=== PATIENT | female | born 1940 | race Asian ===

== ENCOUNTER 2020-06-11 14:57 | Outpatient (CLI) | payer MEDICARE, OTHER, SELFPAY ==
--- NOTE | ~2020-06-11 | DEXA_ITS ---
Bone Density Report Name: Angel Mitchell Age: 79 Sex: Female Ethnicity: Date of : 1940 Indication: postmenopausal; height loss; prior fracture; Referring Provider: RosendoIrene Study: Bone densitometry was performed. Exam Date: June 11, 2020 Accession number: [id number] Bone Density: Region BMD T-score Z-score Classification AP Spine (L1-L4) 1.047 0.0 2.6 Normal Femoral Neck (Left) 0.750 -0.9 1.3 Normal Total Hip (Left) 0.917 -0.2 1.8 Normal Total Hip Bilateral Avg 0.883 -0.5 1.5 Normal Femoral Neck (Right) 0.700 -1.3 0.9 Osteopenia Total Hip (Right) 0.848 -0.8 1.2 Normal World Health Organization criteria for BMD impression classify patients as: Normal (T-score at or above -1.0), Osteopenia (T-score between -1.0 and -2.5), or Osteoporosis (T-score at or below -2.5). 10-year Fracture Risk(1): Major Osteoporotic Fracture 11% Hip Fracture 2.0% Reported Risk Factors: [place] (), Neck BMD=0.700, BMI=29.2, previous fracture (1) FRAX(R) Version 3.08. Fracture probability calculated for an untreated patient. Fracture probability may be lower if the patient has received treatment. Previous Exams: Region Exam Age BMD T-score BMD Change BMD Change Date g/cm2 vs Baseline vs Previous AP Spine(L1-L4) 06/11/2020 79 1.047 0.0 0.097(10.2%)# 0.017(1.6%)# 09/21/2013 72 1.030 -0.2 0.080(8.4%)# -0.072(-6.5%)* 06/30/2012 71 1.102 0.5 0.152(16.0%)# 0.014(1.3%)# 03/03/2010 69 1.088 0.4 0.138(14.5%)* -0.009(-0.8%) 03/02/2008 67 1.096 0.4 0.146(15.4%)* 0.146(15.4%)* 02/11/2004 63 0.950 -0.9 Total Hip(Left) 06/11/2020 79 0.917 -0.2 0.069(8.2%)# 0.061(7.2%)* 09/24/2015 74 0.856 -0.7 0.008(1.0%)# -0.011(-1.3%)# 09/21/2013 72 0.867 -0.6 0.019(2.2%)# -0.004(-0.5%) 06/30/2012 71 0.871 -0.6 0.023(2.8%)# -0.051(-5.5%)# 03/03/2010 69 0.922 -0.2 0.074(8.7%)* 0.046(5.2%)* 03/02/2008 67 0.876 -0.5 0.028(3.3%)* 0.028(3.3%)* 02/11/2004 63 0.848 -0.8 Total Hip(Right) 06/11/2020 79 0.848 -0.8 0.045(5.6%)# 0.023(2.8%) 09/24/2015 74 0.825 -1.0 0.022(2.7%)# 0.002(0.3%)# 09/21/2013 72 0.823 -1.0 0.019(2.4%)# -0.005(-0.6%) 06/30/2012 71 0.827 -0.9 0.024(3.0%)# -0.005(-0.6%)# 03/03/2010 69 0.833 -0.9 0.030(3.7%)* 0.001(0.1%) 03/02/2008 67 0.832 -0.9 0.029(3.6%)* 0.029(3.6%)* 02/11/2004 63 0.803 -1.1 *Denotes significance at 95% confidence level, LSC for AP Spine = 0.022 g/cm2, LSC for Total Hip
== END 2020-06-11 14:58 | disposition home or self-care (01) ==
PROVIDERS: PCP Internal Medicine; Visit Provider Internal Medicine Endocrinology, Diabetes & Metabolism
DX: M85.851 Other specified disorders of bone density and structure, right thigh (principal)
CPT/HCPCS: 77080

== ENCOUNTER → 2020-07-26 11:26 | Outpatient (CLI) | payer MEDICARE, OTHER, SELFPAY ==
--- NOTE | ~2020-07-26 | XR_ITS ---
EXAMINATION: XR toe 1st LT min 2V DATE: 07/26/2020 11:37 INDICATION: Left great toe pain TECHNIQUE: Dorsal plantar, lateral and 2 oblique views of the left great toe were obtained. COMPARISON: None FINDINGS: Alignment is normal. No fracture. Mild osteoarthritis at the first interphalangeal joint. Minimal to mild osteoarthritis at several of the remaining metatarsophalangeal and interphalangeal joints. Moder ate-sized Achilles calcaneal spurs. 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 Reviewed, dictated and finalized at location B. 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
== END ==
PROVIDERS: PCP Nurse Practitioner; Visit Provider Nurse Practitioner
DX: M19.072 Primary osteoarthritis, left ankle and foot (principal)
CPT/HCPCS: 73660

== ENCOUNTER 2020-10-23 07:49 | Outpatient (CLI) | payer MEDICARE, OTHER, SELFPAY ==
--- NOTE | ~2020-10-23 | MM_ITS ---
EXAMINATION: MM screening johnny BI w marvin HISTORY: Screening TECHNIQUE: Craniocaudal and mediolateral oblique 3-D tomosynthesis images were obtained and synthetic 2-D images were generated. CAD analysis was submitted and interpreted. COMPARISON: Comparison to multiple prior studies sequentially, with oldest reviewed study dated 09/10. BREAST PARENCHYMAL COMPOSITION: The breasts are heterogeneously dense, which may obscure small masses . FINDINGS: There is a developing focal asymmetry centrally in the right breast, posterior third. This is not identified on the MLO view. The left breast is stable without evidence for malignancy. IMPRESSION: 1. Developing right breast asymmetry. 2. Additional mammographic views and possible breast ultrasound are recommended. BI-RADS Category 0: Incomplete: Needs additional imaging evaluation. Reviewed, dictated and finalized at location A. I CUTTER IMPRESSION: 1. Developing right breast asymmetry. 2. Additional mammographic views and possible breast ultrasound are recommended . BI-RADS Category 0: Incomplete: Needs additional imaging evaluation.
== END 2020-10-23 07:50 | disposition home or self-care (01) ==
LOC: ANHIMG 07:53
PROVIDERS: PCP Nurse Practitioner; Visit Provider Obstetrics & Gynecology
DX: Z12.31 Encounter for screening mammogram for malignant neoplasm of breast (principal); R92.8 Other abnormal and inconclusive findings on diagnostic imaging of breast
CPT/HCPCS: 77063; 77067

== ENCOUNTER 2020-10-25 01:45 | Emergency (ER) | payer MEDICARE, OTHER, SELFPAY ==
--- NOTE | ~2020-10-25 | CT_ITS ---
EXAMINATION: CT brain wo con INDICATION: Head injury COMPARISON: 08/12/2008 TECHNIQUE: Standard unenhanced head CT. The dose-length product (DLP) was 605.33 mGy-cm. The mA was a djusted according to patient size. Iterative reconstruction technique was employed. FINDINGS: There is no acute intraparenchymal hemorrhage. No evidence of mass lesion. No evidence of a cute infarction. There is mild periventricular and subcortical hypodensity probably related to small vessel ischemic disease. There is mild prominence of the sulci and ventricles related to cerebral atr ophy. Intracranial calcified cerebral atherosclerosis is noted. There are no extra-axial collections. There is no mass effect or midline shift. Changes in the globes are likely from ocular lens surgery. There is mild mucosal thickening of the paranasal sinuses. IMPRESSION: 1. No acute intracranial abnormality. 2. Age related findings. Reviewed, dictated and finalized at location A. [employer]
[2020-10-25 01:52] VITALS: BP 120/78; PULSE 81; RESP 18; TEMP 36.2; O2SAT 100
--- NOTE | 2020-10-25 01:58 | ED.HEATRA ---
HPI - Head Injury General Chief complaint: Syncope Stated complaint: head injury Time Seen by Provider: 10/25/20 01:52 History of Present Illness HPI Narrative: She got out of bed to go to the bathroom this evening and was feeling dizzy. The room was dark and she stumbled, striking her head on the wall. She then fell to the ground. She does not believe that she lost consciousness. She was briefly confused. She did sustain a small laceration to the anterior scalp. After the fall she is also experiencing mild nausea and pain in the front of her head. No neck, back, or hip pain. Related Data Home Medications Medication Instructions Recorded Confirmed aspirin 81 mg tablet,delayed 81 mg PO DAILY 12/12/19 07/26/20 release calcium carbonate 500 mg calcium 500 mg PO DAILY 12/12/19 07/26/20 (1,250 mg) chewable tablet cetirizine 10 mg chewable tablet PO 12/12/19 07/26/20 coenzyme Q10 10 mg capsule 10 mg PO DAILY cap 12/12/19 07/26/20 krill oil 500 mg capsule 500 mg PO DAILY cap 12/12/19 07/26/20 multivitamin 1 tablet PO DAILY 12/12/19 07/26/20 cholecalciferol (vitamin D3) 125 125 mcg PO DAILY 07/26/20 07/26/20 mcg (5,000 unit) capsule Allergies Allergy/AdvReac Type Severity Reaction Status Date / Time No Known Allergies Allergy Verified 07/26/20 10:25 Review of Systems Review of Systems: All systems reviewed & are unremarkable except as noted in HPI and below Constitutional: Constitutional: Denies fever(s) and Denies weakness Eyes: Eyes: Denies change in vision Cardiovascular: Cardiovascular: Denies chest pain Respiratory: Respiratory: Denies dyspnea Gastrointestinal: Gastrointestinal: Denies abdominal pain, Reports nausea and Denies vomiting Musculoskeletal: Musculoskeletal: Denies back pain Neurologic: Denies confusion and Denies weakness [facility] Past Medical History Medical History Chronic rhinitis History of vaginal delivery Hx pulmonary embolism Surgical History Surgical History History of carpal tunnel surgery Family History Family History Sibling Patient's brother is in good health Diabetes mellitus Mother Patient's mother is Father Patient's father is Social History Social History Smoking status: Never smoker Alcohol intake: never Gender identity (if verbalized by the patient): Female Exam Const: General: healthy appearing, no acute distress and alert Orientation/consciousness: patient oriented x3 HENMT: Other: 1.5 cm anterior scalp laceration Eyes: Pupils: Equal, round and reactive pupils present Resp: Effort & Inspection: normal respiratory effort Auscultation: clear to auscultation bilaterally Cardio: Rate: regular rate Rhythm: regular rhythm Skin: General skin exam: normal color Neuro: General: patient oriented x3, moves all extremities and no focal motor deficits Cranial nerves: Yes CN's II-XII intact bilaterally Speech: normal speech Extrem: General: normal to inspection Course Vital Signs Vital signs: Vital Signs Temperature 36.2 C L 10/25/20 01:52 Pulse Rate 81 10/25/20 01:52 Respiratory Rate 18 10/25/20 01:52 Blood Pressure 120/78 10/25/20 01:52 Pulse Oximetry 100 10/25/20 01:52 Temperature 36.2 C L 10/25/20 01:52 Pulse Rate 81 10/25/20 01:52 Respiratory Rate 18 10/25/20 01:52 Blood Pressure 120/78 10/25/20 01:52 Pulse Oximetry 100 10/25/20 01:52 Procedures Laceration Laceration 1: Site: scalp Size (cm): 1.5 Description: linear Depth: simple, single layer Local Anesthetic: none ====== Skin Level ====== Skin layer closed with: berhane Number of sutures: 1 ====== Subcutaneous Layer =
[2020-10-25] MEDS: ONDANSETRON HCL ODT 4 MG TABLET PO (02:03)
[2020-10-25] MEDS: ACETAMINOPHEN 500 MG TABLET 1000 MG PO (02:04)
[2020-10-25 03:07] VITALS: BP 122/79; PULSE 74; RESP 16; TEMP 36.6; O2SAT 98
== END 2020-10-25 03:08 | disposition home or self-care (01) ==
PROVIDERS: Emergency Provider Emergency Medicine; PCP Internal Medicine
DX: S01.01XA Laceration without foreign body of scalp, initial encounter (principal); Z86.711 Personal history of pulmonary embolism; W18.09XA Striking against other object with subsequent fall, initial encounter
CPT/HCPCS: 12001; 70450; 99284; A9270

== ENCOUNTER 2020-11-07 09:10 | Outpatient (CLI) | payer MEDICARE, OTHER, SELFPAY ==
--- NOTE | ~2020-11-07 | XR_ITS ---
EXAMINATION: XR femur LT min 2V DATE: 11/07/2020 09:27 INDICATION: Left thigh pain post fall TECHNIQUE: AP and lateral views of the left femur were obtained on overlapping proximal and distal ra diographs. COMPARISON: None. FINDINGS: Bone alignment is normal. No fracture. Mild osteoarthritis at the left hip and all 3 compartments of the left knee. No left knee joint effusion. Small enthesophyte at the proximal pole of the patella. S oft tissues are unremarkable. IMPRESSION: 1. Mild left hip and tricompartmental left knee osteoarthritis. No acute osseous abnormality. Reviewed, dictated and finalized at location B. NCE BROKER IMPRESSION: 1. Mild left hip and tricompartmental left knee osteoarthritis. No acute osseou s abnormality.
== END 2020-11-07 09:11 | disposition home or self-care (01) ==
LOC: ANHIMG 09:12
PROVIDERS: Family Provider Internal Medicine; PCP Internal Medicine; Visit Provider Nurse Practitioner
DX: M16.12 Unilateral primary osteoarthritis, left hip (principal); M17.12 Unilateral primary osteoarthritis, left knee
CPT/HCPCS: 73552

== ENCOUNTER 2020-11-29 12:42 | Outpatient (CLI) | payer MEDICARE, OTHER, SELFPAY ==
--- NOTE | ~2020-11-29 | MMUS_ITS ---
EXAMINATION: MM diagnostic mammo unilat RT, US breast RT complete HISTORY: Follow-up developing right breast asymmetry TECHNIQUE: Additional 3-D tomosynthesis images of the right breast were performed and synthetic 2-D i mages were generated. CAD analysis was submitted and interpreted. High resolution complete right breezy st ultrasound was performed. COMPARISON: Comparison to multiple prior studies sequentially, with oldest reviewed study dated 09/10. BREAST PARENCHYMAL COMPOSITION: The breasts are heterogenously dense, which may obscure small masses. FINDINGS: MAMMOGRAPHIC FINDINGS: There are no suspicious masses, calcifications or architectural distortion in the right breast to sug gest malignancy. ULTRASOUND: Right breast ultrasound: Normal heterogeneous echotexture without focal solid or cystic mass. IMPRESSION: 1. No evidence for malignancy in the right breast. 2. Routine yearly screening mammogram and regular clinical breast examination are recommended. BI-RADS Category 2: Benign finding(s). Reviewed, dictated and finalized at location A. ECT ADMINISTRATIVE ASSISTANT IMPRESSION: 1. No evidence for malignancy in the right breast. 2. Routine yearly screening mammogram and regular clinical breast examination a re recommended. BI-RADS Category 2: Benign finding(s).
== END 2020-11-29 12:43 | disposition home or self-care (01) ==
LOC: ANHIMG 12:43
PROVIDERS: Family Provider Internal Medicine; PCP Internal Medicine; Visit Provider Internal Medicine
DX: R92.8 Other abnormal and inconclusive findings on diagnostic imaging of breast (principal)
CPT/HCPCS: 76641; 77065

== ENCOUNTER 2021-03-26 10:02 | Outpatient (CLI) | payer MEDICARE, OTHER, SELFPAY ==
--- NOTE | ~2021-03-26 | XR_ITS ---
XR knee LT 3V 03/26/2021 10:26 Indication: Bilateral knee pain and swelling Procedure: 3 views right knee Comparison: No prior studies for comparison. Findings: There is moderate osteoarthritis. No fracture or traumatic malalignment. No significant anabel nt effusion. Impression: 1: Moderate osteoarthritis of the left knee. Reviewed, dictated and finalized at location A. Impression: 1: Moderate osteoarthritis of the left knee.
--- NOTE | ~2021-03-26 | XR_ITS ---
XR knee RT 3V 03/26/2021 10:26 Indication: Right knee pain Procedure: 3 views right knee Comparison: No prior studies for comparison. Findings: No fracture, subluxation or dislocation. There is moderate tricompartment osteoarthritis. N o significant joint effusion. No foreign bodies. Impression: 1: Moderate osteoarthritis of the right knee. Reviewed, dictated and finalized at location A. Impression: 1: Moderate osteoarthritis of the right knee.
== END 2021-03-26 10:03 | disposition home or self-care (01) ==
LOC: ANHIMG 10:06
PROVIDERS: PCP Internal Medicine; Visit Provider Nurse Practitioner
DX: M17.0 Bilateral primary osteoarthritis of knee (principal)
CPT/HCPCS: 73562

== ENCOUNTER 2021-06-02 10:48 | Emergency (ER) | payer MEDICARE, OTHER, SELFPAY ==
[2021-06-02 10:56] VITALS: BP 123/83; PULSE 101; RESP 16; TEMP 36.9; O2SAT 100
--- NOTE | 2021-06-02 11:02 | ED.GENADULT ---
HPI - General Adult General Chief complaint: Wound/Laceration Stated complaint: rt hand middle finger laceration Source: patient Mode of arrival: ambulatory Limitations: no limitations History of Present Illness HPI narrative: Patient is a 80-year-old [place] female who presents to [facility] via POV for evaluation of a laceration to right middle finger that occurred this morning. She states she was cutting a pair when she accidentally lacerated finger with a paring knife. She reports mild bleeding. Symptoms improved with applied pressure. She also reports applying Neosporin and a Band-Aid. Related Data Home Medications Medication Instructions Recorded Confirmed aspirin 81 mg tablet,delayed 81 mg PO DAILY 12/12/19 03/26/21 release calcium carbonate 500 mg calcium 500 mg PO DAILY 12/12/19 03/26/21 (1,250 mg) chewable tablet cetirizine 10 mg chewable tablet PO 12/12/19 03/26/21 coenzyme Q10 10 mg capsule 10 mg PO DAILY cap 12/12/19 03/26/21 krill oil 500 mg capsule 500 mg PO DAILY cap 12/12/19 03/26/21 multivitamin 1 tablet PO DAILY 12/12/19 03/26/21 cholecalciferol (vitamin D3) 125 125 mcg PO DAILY 07/26/20 03/26/21 mcg (5,000 unit) capsule Allergies Allergy/AdvReac Type Severity Reaction Status Date / Time No Known Allergies Allergy Verified 06/02/21 11:02 Review of Systems Review of Systems: Denies pain, fever, chills, sweats, dizziness, LOC, lymphadenopathy, difficulty healing, petechiae, pruritus, easy bruising, uncontrolled bleeding, range of motion, deformity, paresthesias, loss of sensation, shortness of breath, chest pain, and heart palpitations. [facility] Past Medical History Medical History Chronic rhinitis History of vaginal delivery Hx pulmonary embolism Surgical History Surgical History History of carpal tunnel surgery Family History Family History Sibling Patient's brother is in good health Diabetes mellitus Mother Patient's mother is Father Patient's father is Social History Social History Smoking status: Never smoker Alcohol intake: never Gender identity (if verbalized by the patient): Female Comments I have reviewed and agree with the patient's past medical, surgical, social, and family hx as documented by the RN. There is no relevant family history pertinent to the presenting complaint. Exam Narrative: GENERAL: Well-appearing, well-nourished, and in no acute distress. HEAD: Normocephalic, atraumatic. No facial swelling appreciated. EYES: PERRLA and EOMI. No evidence of erythema, swelling, or drainage. ENT: Nares clear, no rhinorrhea or epistaxis.Mucous membranes moist and pink. Uvula is midline without erythema and swelling. No evidence of obstruction, petechial rash, cobblestoning, lesions, ulcers, erythema, swelling, exudates, peritonsillar abscess, tenting, or drooling. Breath odor and voice normal. NECK: Supple. No Lymphadenopathy or nuchal rigidity appreciated. CHEST: Bilateral lung montoya are clear to auscultation. No respiratory distress. No evidence of cough or pleuritic cp upon examination. HEART: Tachycardia with a rate of 101. Regular rhythm. No murmur, gallop, or rub heard. EXTREMITIES: Normal range of motion. No edema. SKIN: Warm, dry. No evidence of cellulitis, abscess, streaking, induration, petechiae, hematoma, contusion, drainage, or bleeding. Small skin avulsion noted to palmar aspect of left third digit. NEURO: No focal deficits. Alert and oriented x3. SPECIAL OBSERVATIONS: Smiling. Laughing. No evidence of discomfort. Course Vital Signs Vital signs: Vital Signs Temperature 98.4 F 06/02/21 10:56 Pulse Rate 101 H 06/02/21 10:56 Respiratory Rate 16 06/02/21
== END 2021-06-02 11:19 | disposition home or self-care (01) ==
PROVIDERS: Emergency Provider Nurse Practitioner Family; PCP Internal Medicine
DX: S61.212A Laceration without foreign body of right middle finger without damage to nail, initial encounter (principal); W26.0XXA Contact with knife, initial encounter; Z86.711 Personal history of pulmonary embolism
CPT/HCPCS: 29130; 99213; G0463

== ENCOUNTER 2021-08-11 13:28 | Outpatient (CLI) | payer MEDICARE, OTHER, SELFPAY ==
--- NOTE | ~2021-08-11 | NM_ITS ---
EXAMINATION: NM thyroid scan w uptake DATE: 08/12/2021 15:05 INDICATION: Thyrotoxicosis COMPARISON: None. TECHNIQUE: 345 microcuries I-123 was administered orally in capsule form. Scintigraphic images of th e thyroid gland were obtained at 24 hours. Thyroid uptake was calculated by the technologist. FINDINGS: The thyroid uptake is 15.3% (normal 10-30%), with the right lobe measuring 7.6% uptake and the left 8 .1%. There is no focal area of decreased or increased activity to suggest hypofunctioning or hyperfun ctioning nodule. IMPRESSION: 1. Normal thyroid scintigraphy and 24-hour iodine uptake. Reviewed, dictated and finalized at location A.
== END 2021-08-11 13:29 | disposition home or self-care (01) ==
LOC: ANHIMG 13:33
PROVIDERS: PCP Internal Medicine; Visit Provider Internal Medicine
DX: E05.90 Thyrotoxicosis, unspecified without thyrotoxic crisis or storm (principal)
CPT/HCPCS: 78014; A9516

== ENCOUNTER 2022-09-08 12:53 | Outpatient (CLI) | payer MEDICARE, OTHER, SELFPAY ==
--- NOTE | ~2022-09-08 | DEXA_ITS ---
Bone Density Report Name: LINDSEY CROCKETT Age: 81 Sex: Female Ethnicity: Date of : 1940 Indication: postmenopausal; screening for osteoporosis; height loss; Referring Provider: RENATEDANTE Study: Bone densitometry was performed. Exam Date: September 08, 2022 Accession number: [id number] Bone Density: Region BMD T-score Z-score Classification AP Spine(L1-L4) 1.057 0.1 2.8 Normal Femoral Neck (Left) 0.785 -0.6 1.8 Normal Total Hip (Left) 0.870 -0.6 1.5 Normal Femoral Neck (Right) 0.697 -1.4 1.0 Osteopenia Total Hip (Right) 0.825 -1.0 1.1 Normal Total Hip Mean 0.848 -0.8 1.3 Normal World Health Organization criteria for BMD impression classify patients as: Normal (T-score at or above -1.0), Osteopenia (T-score between -1.0 and -2.5), or Osteoporosis (T-score at or below -2.5). 10-year Fracture Risk(1): Major Osteoporotic Fracture 7.6% Hip Fracture 1.7% Reported Risk Factors: [place] (), Neck BMD=0.697, BMI=27.4 (1) FRAX(R) Version 3.08. Fracture probability calculated for an untreated patient. Fracture probability may be lower if the patient has received treatment. Previous Exams: Region Exam Age BMD T-score BMD Change BMD Change Date g/cm2 vs Baseline vs Previous AP Spine (L1-L4) 09/08/2022 81 1.057 0.1 0.026 (2.6%)# -0.012 (-1.2%) 06/11/2020 79 1.069 0.2 0.039 (3.8%)# 0.022 (2.1%) 06/11/2020 79 1.047 0.0 0.017 (1.6%)# 0.017 (1.6%)# 09/21/2013 72 1.030 -0.2 Total Hip(Left) 09/08/2022 81 0.870 -0.6 0.004 (0.4%)# -0.047 (-5.1%) 06/11/2020 79 0.917 -0.2 0.050 (5.8%)# 0.061 (7.2%)* 09/24/2015 74 0.856 -0.7 -0.011 (-1.3%) -0.011 (-1.3%) 09/21/2013 72 0.867 -0.6 Total Hip(Right) 09/08/2022 81 0.825 -1.0 0.002 (0.2%)# -0.024 (-2.8%) 06/11/2020 79 0.848 -0.8 0.026 (3.1%)# 0.023 (2.8%) 09/24/2015 74 0.825 -1.0 0.002 (0.3%)# 0.002 (0.3%)# 09/21/2013 72 0.823 -1.0 *Denotes significance at 95% confidence level, LSC for AP Spine = 0.022 g/cm2, LSC for Total Hip = 0.027 g/cm2 # Denotes dissimilar scan types or analysis methods Clinical Information Provided by Patient: Has used the following medications: Vitamin D, Calcium Patient maximum height was 65 Menopause Age: 51 No regular weight bearing exercise Onset of menses at age 16 Number of children 1 Impression: The patient has low bone mass, based on the Right
== END 2022-09-08 12:54 | disposition home or self-care (01) ==
PROVIDERS: PCP Internal Medicine; Visit Provider Internal Medicine Endocrinology, Diabetes & Metabolism
DX: M85.851 Other specified disorders of bone density and structure, right thigh (principal)
CPT/HCPCS: 77080

== ENCOUNTER 2023-07-13 09:46 | Outpatient (CLI) | payer MEDICARE, OTHER, SELFPAY ==
--- NOTE | ~2023-07-13 | MM_ITS ---
EXAMINATION: MM screening johnny BI w marvin HISTORY: Screening mammogram TECHNIQUE: Craniocaudal and mediolateral oblique 3-D tomosynthesis images were obtained and synthetic 2-D images were generated. CAD analysis was submitted and interpreted. COMPARISON: 10/23/2020, 10/10/2019 BREAST PARENCHYMAL COMPOSITION:There are scattered areas of fibroglandular density. FINDINGS: No suspicious mass, calcification, or architectural distortion are identified in either james ast to suggest malignancy. There has been no suspicious interval change. IMPRESSION: No mammographic evidence of malignancy. Recommend routine screening mammography in one year. BI-RADS Category 1: Negative Reviewed, dictated and finalized at location .
== END 2023-07-13 09:47 | disposition home or self-care (01) ==
LOC: ANHIMG 09:47
PROVIDERS: PCP Family Medicine; Visit Provider Obstetrics & Gynecology
DX: Z12.31 Encounter for screening mammogram for malignant neoplasm of breast (principal)
CPT/HCPCS: 77063; 77067

== ENCOUNTER 2023-08-25 01:49 | Day surgery (SDC) | payer MEDICARE, OTHER, SELFPAY ==
[2023-08-16 14:59] VITALS: BMI 26.1
--- NOTE | 2023-08-23 11:22 | SUR.PREOP ---
Patient called regarding upcoming procedure. Reviewed preop instructions, appointment times, and procedure prep.
[2023-08-25 12:34] VITALS: BP 134/74; PULSE 80; RESP 18; TEMP 36.4; O2SAT 100; BMI 26.1
--- NOTE | 2023-08-25 12:59 | WPDANESEPPF ---
Anes - Initial Pre Proc Eval Procedure: Operation Date: 08/25/23 14:30 Proposed Procedures p Esophagogastroduodenoscopy EGD - Figueroa Enciso MD Date/Time: 08/25/23 12:59 Surgeon: Figueroa Enciso MD Pre Op Diagnosis: epigastric pain, other fecal abnormalities Patient Data Age: 82 Gender: F Height: 1.63 m Weight: 69.1 kg Last Vital Signs Temp 97.5 F L 08/25/23 12:34 Pulse 80 08/25/23 12:34 Resp 18 08/25/23 12:34 BP 134/74 08/25/23 12:34 Pulse Ox 100 08/25/23 12:34 O2 Del Method Room Air 08/25/23 12:34 Allergies Allergy/AdvReac Type Severity Reaction Status Date / Time No Known Allergies Allergy Verified 08/16/23 14:57 Home Medications Medication Instructions Recorded Confirmed Type aspirin 81 mg tablet,delayed 325 mg PO DAILY 12/12/19 08/16/23 History release (Adult Low Dose Aspirin) calcium carbonate 500 mg calcium 1,000 mg PO DAILY 12/12/19 08/03/23 History (1,250 mg) chewable tablet (Calcium 500) coenzyme Q10 10 mg capsule (Co 10 mg PO DAILY 12/12/19 08/16/23 History Q-10) krill oil 500 mg capsule 500 mg PO DAILY 12/12/19 08/16/23 History multivitamin 1 tablet PO DAILY 12/12/19 08/16/23 History trazodone 50 mg tablet 50 mg PO QHS PRN sleep #90 tabs 06/23/23 08/16/23 Rx cholecalciferol (vitamin D3) 125 10,000 unit PO DAILY 08/03/23 08/16/23 History mcg (5,000 unit) capsule omeprazole magnesium 20 mg 20 mg PO DAILY 08/03/23 08/16/23 History capsule,delayed release (Acid Manager Shift (omeprazole)) cetirizine 10 mg capsule (Zyrtec) 10 mg PO DAILY 08/16/23 08/16/23 History Patient hx anesthesia problems: none Family hx anesthesia problems: none Results Review: All pre-operative results and documents have been reviewed as part of the pre-operative evaluation. [facility] Past Medical History Medical History Arthritis Chronic rhinitis History of vaginal delivery Hx pulmonary embolism Surgical History Surgical History History of carpal tunnel surgery Family History Family History Sibling Patient's brother is in good health Diabetes mellitus Mother Patient's mother is Father Patient's father is Social History Social History Smoking status: Never smoker Second hand tobacco smoke exposure: No Alcohol intake: never Substance use: never Substance use type: does not use Lack of Transportation: No Lack of Food: Never True Current Housing: I Have Housing Concerned About Future Housing: No Difficulty Paying Gas/Electric Bills: No Difficulty Paying for Meds: No Currently Unemployed: No Education: Grade School Difficulty w/ Childcare or Family Care: No Living arrangements: with friend(s) Occupation/Education: retired Gender identity (if verbalized by the patient): Female Anes - Eval Final PreProcedure Day of Procedure 08/25/23 12:59 Patient weight: normal Heart: regular rate and rhythm Lungs: clear to auscultation Airway: Mallampati scale class II Neurological: alert and oriented Last oral intake: >/= 8 hours ASA classification: II Emergent: no Anesthetic plan: proceed Anesthesia type and monitoring: general GIVS and standard monitoring Results Review: All pre-operative results and documents have been reviewed as part of the pre-operative evaluation. Informed Consent: The patient's anesthetic plan and its attendant risks and benefits were discussed with the patient/family/POA. Questions were solicited and answers provided to the satisfaction of the patient/family/POA.
--- NOTE | 2023-08-25 13:16 | WPDHPUPDATE1 ---
History and Physical Update Update Date/Time: 08/25/23 13:16 History and Physical has been reviewed, including an updated exam of the patient. There are NO changes in the patient's condition. Risks, benefits, and alternatives have been discussed and questions answered. Patient agrees to proceed with procedure.
[2023-08-25] MEDS: LACTATED RINGERS 1,000 ML 150 ML IV CONT (13:26)
[2023-08-25 13:43] VITALS: BP 109/70; PULSE 77; RESP 20; O2SAT 98
--- NOTE | 2023-08-25 13:49 | SUR.OPER ---
Patient late to room due to having IV inserted via ultrasound in preop.
[2023-08-25 13:53] VITALS: BP 109/67; PULSE 70; RESP 19; O2SAT 99
[2023-08-25 14:03] VITALS: BP 137/73; PULSE 65; RESP 21; O2SAT 100
== END 2023-08-25 14:20 | disposition home or self-care (01) ==
PROVIDERS: PCP Nurse Practitioner Family; Visit Provider Internal Medicine Gastroenterology
PROC: 0DJ08ZZ Inspection of Upper Intestinal Tract, Via Natural or Artificial Opening Endoscopic (ICD-10-PCS; CPT 43235; principal; 2023-08-25 14:30)
DX: K25.9 Gastric ulcer, unspecified as acute or chronic, without hemorrhage or perforation (principal); K29.50 Unspecified chronic gastritis without bleeding; Z79.82 Long term (current) use of aspirin; Z86.711 Personal history of pulmonary embolism
CPT/HCPCS: 43239; 87081; 88305; 88342; J2704; J7120

== ENCOUNTER 2023-11-24 01:26 | Day surgery (SDC) | payer MEDICARE, OTHER, SELFPAY ==
[2023-11-16 10:42] VITALS: BMI 26.1
--- NOTE | 2023-11-22 11:01 | SUR.PREOP ---
Patient called regarding upcoming procedure. Voicemail left regarding appointment times.
[2023-11-24 09:35] VITALS: BP 131/85; PULSE 83; RESP 18; TEMP 36.2; O2SAT 99
[2023-11-24] MEDS: LACTATED RINGERS 1,000 ML 150 ML IV CONT (09:42)
--- NOTE | 2023-11-24 10:34 | PM.HPGS ---
History of Present Illness History of Present Illness Consent: Risks, benefits, and alternatives have been discussed and questions answered. Patient agrees to proceed with procedure. Chief complaint: ulcer Narrative: Angel Mitchell is a 83 year old female here for egd to assess healing of gastric ulcer that was found 08/2023 after had epigastric pain and melena, denies any more symptoms, no h pylori Review of Systems Constitutional: Constitutional: Denies headache(s) and Denies weakness Eyes: Eyes: Denies blurry vision ENT: Reports Normal hearing present, Denies headache(s) and Denies neck pain Cardiovascular: Cardiovascular: Denies chest pain and Denies dyspnea Respiratory: Respiratory: Denies dyspnea Gastrointestinal: Gastrointestinal: Reports no additional gastrointestinal complaints Genitourinary: Genitourinary: Denies dysuria Musculoskeletal: Musculoskeletal: Denies neck pain Integumentary/Breasts: Skin/Breast: Denies dry skin Neurologic: Reports Normal hearing present, Denies headache(s) and Denies weakness Psychiatric: Psychiatric: Denies anxiety Endocrine: Endocrine: Denies change in body appearance Hematologic/Lymphatic: Hematologic/Lymphatic: Denies easy bleeding Allergic/Immunologic: Allergic/Immunologic: Denies urticaria PMFSH Past Medical History Medical History (Updated 11/24/23 @ 10:35 by Figueroa Enciso MD) Arthritis Chronic rhinitis Gastric ulcer History of vaginal delivery Hx pulmonary embolism Surgical History Surgical History History of carpal tunnel surgery Family History Family History Sibling Patient's brother is in good health Diabetes mellitus Mother Patient's mother is Father Patient's father is Social History Social History Smoking status: Never smoker Second hand tobacco smoke exposure: No Alcohol intake: never Substance use: never Substance use type: does not use Lack of Transportation: No Lack of Food: Never True Current Housing: I Have Housing Concerned About Future Housing: No Difficulty Paying Gas/Electric Bills: No Difficulty Paying for Meds: No Currently Unemployed: No Education: Grade School Difficulty w/ Childcare or Family Care: No Living arrangements: with friend(s) Occupation/Education: retired Gender identity (if verbalized by the patient): Female Spiritual care concerns: No Meds Home Medications and Allergies Home Medications Medication Instructions Recorded Confirmed Type coenzyme Q10 10 mg capsule (Co 10 mg PO DAILY 12/12/19 11/16/23 History Q-10) krill oil 500 mg capsule 500 mg PO DAILY 12/12/19 11/16/23 History multivitamin 1 tablet PO DAILY 12/12/19 11/16/23 History trazodone 50 mg tablet 50 mg PO QHS PRN sleep #90 tabs 06/23/23 11/16/23 Rx cholecalciferol (vitamin D3) 125 10,000 unit PO DAILY 08/03/23 11/16/23 History mcg (5,000 unit) capsule cetirizine 10 mg capsule (Zyrtec) 10 mg PO DAILY 08/16/23 11/16/23 History omeprazole 40 mg capsule,delayed 40 mg PO .bid #60 caps 08/25/23 11/16/23 Rx release Allergies Allergy/AdvReac Type Severity Reaction Status Date / Time No Known Allergies Allergy Verified 11/18/23 07:04 Vital Signs Vital Signs - 24 hr 11/24/23 09:35 Temperature 97.2 F L Pulse Rate 83 Respiratory Rate 18 Blood Pressure 131/85 Pulse Oximetry 99 Oxygen Delivery Room Air Exam Const: General: comfortable and no acute distress HENMT: Face/Nose/Sinus: Normal nares present Eyes: General: appearance normal, both eyes and all related structures Neck: Neck: no JVD Resp: Auscultation: clear to auscultation bilaterally Cardio: Rate: regular rate Rhythm: regular rhythm GI: Inspection: non-distended GI Palp: Yes Soft to palpation S
--- NOTE | 2023-11-24 10:35 | WPDANESEPPF ---
Anes - Initial Pre Proc Eval Procedure: Operation Date: 11/24/23 11:00 Proposed Procedures p Esophagogastroduodenoscopy - Figueroa Enciso MD Date/Time: 11/24/23 10:35 Surgeon: Figueroa Enciso MD Pre Op Diagnosis: ulcer Patient Data Age: 83 Gender: F Height: 1.63 m Weight: 69.4 kg Last Vital Signs Temp 97.2 F L 11/24/23 09:35 Pulse 83 11/24/23 09:35 Resp 18 11/24/23 09:35 BP 131/85 11/24/23 09:35 Pulse Ox 99 11/24/23 09:35 O2 Del Method Room Air 11/24/23 09:35 Allergies Allergy/AdvReac Type Severity Reaction Status Date / Time No Known Allergies Allergy Verified 11/18/23 07:04 Home Medications Medication Instructions Recorded Confirmed Type coenzyme Q10 10 mg capsule (Co 10 mg PO DAILY 12/12/19 11/16/23 History Q-10) krill oil 500 mg capsule 500 mg PO DAILY 12/12/19 11/16/23 History multivitamin 1 tablet PO DAILY 12/12/19 11/16/23 History trazodone 50 mg tablet 50 mg PO QHS PRN sleep #90 tabs 06/23/23 11/16/23 Rx cholecalciferol (vitamin D3) 125 10,000 unit PO DAILY 08/03/23 11/16/23 History mcg (5,000 unit) capsule cetirizine 10 mg capsule (Zyrtec) 10 mg PO DAILY 08/16/23 11/16/23 History omeprazole 40 mg capsule,delayed 40 mg PO .bid #60 caps 08/25/23 11/16/23 Rx release Patient hx anesthesia problems: none Family hx anesthesia problems: none Results Review: All pre-operative results and documents have been reviewed as part of the pre-operative evaluation. [facility] Past Medical History Medical History Arthritis Chronic rhinitis History of vaginal delivery Hx pulmonary embolism Surgical History Surgical History History of carpal tunnel surgery Family History Family History Sibling Patient's brother is in good health Diabetes mellitus Mother Patient's mother is Father Patient's father is Social History Social History Smoking status: Never smoker Second hand tobacco smoke exposure: No Alcohol intake: never Substance use: never Substance use type: does not use Lack of Transportation: No Lack of Food: Never True Current Housing: I Have Housing Concerned About Future Housing: No Difficulty Paying Gas/Electric Bills: No Difficulty Paying for Meds: No Currently Unemployed: No Education: Grade School Difficulty w/ Childcare or Family Care: No Living arrangements: with friend(s) Occupation/Education: retired Gender identity (if verbalized by the patient): Female Spiritual care concerns: No Anes - Eval Final PreProcedure Day of Procedure 11/24/23 10:35 Patient weight: normal Heart: regular rate and rhythm Lungs: clear to auscultation Airway: Mallampati scale class II Neurological: alert and oriented Last oral intake: >/= 8 hours ASA classification: II Emergent: no Anesthetic plan: proceed Anesthesia type and monitoring: general GIVS and standard monitoring Results Review: All pre-operative results and documents have been reviewed as part of the pre-operative evaluation. Informed Consent: The patient's anesthetic plan and its attendant risks and benefits were discussed with the patient/family/POA. Questions were solicited and answers provided to the satisfaction of the patient/family/POA.
[2023-11-24 10:53] VITALS: BP 128/66; PULSE 78; RESP 21; O2SAT 99
[2023-11-24 11:03] VITALS: BP 123/68; PULSE 74; RESP 25; O2SAT 99
== END 2023-11-24 11:19 | disposition home or self-care (01) ==
PROVIDERS: PCP Nurse Practitioner Family; Visit Provider Internal Medicine Gastroenterology
PROC: 0DJ08ZZ Inspection of Upper Intestinal Tract, Via Natural or Artificial Opening Endoscopic (ICD-10-PCS; CPT 43235; principal; 2023-11-24 11:00)
DX: Z09 Encounter for follow-up examination after completed treatment for conditions other than malignant neoplasm (principal); K29.50 Unspecified chronic gastritis without bleeding; B96.81 Helicobacter pylori [H. pylori] as the cause of diseases classified elsewhere; Z87.11 Personal history of peptic ulcer disease; Z86.711 Personal history of pulmonary embolism
CPT/HCPCS: 43239; 88305; 88342; J2704; J7120

== ENCOUNTER 2024-05-18 08:15 | Outpatient (CLI) | payer MEDICARE, OTHER, SELFPAY ==
--- NOTE | 2024-05-18 08:42 | ECG_ITS ---
Test Date: 2024-05-18 08:57:28 Measurements Intervals [place] Rate: 68 P: 0 KS: 0 QRS: 23 QRSD: 94 T: -30 QT: 379 QTc: 405 Interpretive Statements ATRIAL FIBRILLATION LOW QRS VOLTAGE IN PRECORDIAL LEADS [QRS DEFLECTION < 1.0 mV IN CHEST LEADS] NONSPECIFIC T-WAVE ABNORMALITY ABNORMAL RHYTHM ECG No previous ECG available for comparison Electronically Signed On 05-19-2024 13:26:41 CDT by Zachary Caro M.D.
== END 2024-05-18 08:16 | disposition home or self-care (01) ==
PROVIDERS: PCP Nurse Practitioner Family; Visit Provider Nurse Practitioner Family
DX: I49.9 Cardiac arrhythmia, unspecified (principal); R94.31 Abnormal electrocardiogram [ECG] [EKG]
CPT/HCPCS: 93005

== ENCOUNTER 2025-02-07 09:48 | Outpatient (CLI) | payer MEDICARE, OTHER, SELFPAY ==
--- NOTE | ~2025-02-07 | MM_ITS ---
EXAMINATION: MM screening johnny BI w marvin HISTORY: Screening TECHNIQUE: Craniocaudal and mediolateral oblique 3-D tomosynthesis images were obtained and synthetic 2-D images were generated. CAD analysis was submitted and interpreted. COMPARISON: Comparison to multiple prior studies sequentially, with oldest reviewed study dated 09/11. BREAST PARENCHYMAL COMPOSITION: Not dense: There are scattered areas of fibroglandular density. FINDINGS: There is no evidence of suspicious mass, calcification, or architectural distortion to sugg est malignancy in either breast. There has been no suspicious interval change. IMPRESSION: 1. No mammographic evidence of malignancy. 2. Recommend routine screening mammography in one year. BI-RADS Category 1: Negative Reviewed, dictated and finalized at location A.
--- OUTSIDE RECORDS SUMMARY | 2025-02-07 10:47 | XMS_ITS | Continuity of Care Document ---
Author Organization [facility] Address [address] Kimball [address] [place] [address] Phone Care Team Providers Care Piece Marker Small [employer] Name Role Phone Isabell Moore OD Unavailable [...] Copied on Encounter [facility], [address] [facility] [address], [place], [place], [address], [place] tel:[phone] SEC Mick ALEXANDRE Professional Complete Exam (chief complaint) Dry eyesMeibomian gland dysfnct right eye, upper and lower eyelidsMeibom emma gland dysfnct left eye, upper and lower eyelidsPucker ing of macula, right eyeHx of LASIKBilatera l artificial lens implant 4 Oscar OD Isabell. [address], [address], [place], [place], [address], [place]. tel:[phone] Irene Robbins MD.Referri ng Provider: Luis A Rojas, [facility] [address], [place], [address] . tel:[phone] [facility], [facility] [address], [place], [place], [address], tel:[phone] SEC Mick SCHROEDER Professional Complete Exam (chief complaint) Drusen (degenerative ) of macula, right eyePuckering of macula, right eyePresence of intraocular lensDry eyes Sep- 2 J Luis Romero. [address], [address], [place], [place], [address], [place]. tel:[phone] Irene Robbins MD.Referri ng Provider: Luis A Rojas, [facility] [address], [place], [address] . tel:[phone] [facility], [facility] [address], [place], [place], [address], [place] tel:[phone] SEC Mick SCHROEDER Professional No Information Apr-0 2 J Luis Romero. [address], [address], [place], [place], [address], [place]. tel:[phone] Referring Provider: Luis A Rojas, [facility] [address], [place], [address] . tel:[phone] Office/outpa tient Visit, Est [facility], [facility] [address], [place], [place], [address], [place] tel:[phone] SEC Mick SCHROEDER Professional 6 mo Cornea check (chief complaint) Meibomian gland dysfunction (MGD) of both eyesSuperfici al punctate keratitis of both eyes Apr-0 1 J Luis Romero. [address], [address], [place], [place], [address], [place]. tel:[phone] Irene oRbbins MD.Special ist: Petr Bradshaw, [address] [facility] [address], [place], [address]. tel:[phone] erring Provider: Luis A Rojas, [facility] [place] [facility] [address], [place], [address] . tel:[phone] [facility], [address] [place] [address] [address], [place], [place], [address], [place] tel:[phone] SEC [place] Professional Complete Exam (chief complaint) Bilateral artificial lens implantMeibom emma gland dysfunction (MGD) of both eyesConjuncti vochalasis of both eyesPunctate keratitis, bilateralDrus en (degenerative ) of macula, right eye Oct-0 2-202 0 J Luis Romero. [address] [facility], [facility] [address], [place], [place], [address], [place]. tel:[phone] Irene Robbins MD.Referri ng Provider: Luis A Rojas, [facility] [place] [facility] [address], [place], [address] . tel:[phone] [facility], [facility] [email or web address] [address], [place], [place], [address], [place] tel:[phone] SEC [place] Professional Complete Exam (chief complaint) Punctate keratitis, right eyePresence of intraocular lensMeibomian gland dysfunction (MGD) of both eyes Oct-0 1-201 9 J Luis Romero. [address] [facility], [facility] [address], [place], [place], [address], [place]. tel:[phone] Referring Provider: Luis A Rojas, [facility] [place] [facility] [address], [place], [address] . tel:[phone] Office/outpa tient Visit, Est [facility], [facility] [address], [place], [place], [address], [place] tel:[phone] SEC [place] Dry Eye F/U (chief complaint) Meibomian gland dysfunction (MGD) Oct-0 4201 8 Luisito OD Marylou. [address] [facility], [address], [place], [address], [place]. tel:[phone] Referring Provider: Luis A Rojas, [address] [place], [place] [address]cre[address] [place] [facility] [address], [place], [address] . tel:[phone] [facility], [address] [place] [address] [address], [place], [place], [address], [place] tel:[phone] SEC Mick SCHROEDER Professional Complete Exam (chief complaint) Bilateral artificial lens implantMeibom emma gland dysfunction (MGD)Superfic ial punctate keratitis of both eyes Oct-0 2-201 8 Dietz Nick. [address] [facility], [address], [place], [place], [address], [place]. tel:[phone] Referring Provider: Luis A Rojas, [facility] [place] [address] [place] [facility] [address], [place], [address] . tel:[phone] Office/outpa tient Visit, Est [facility], [address] [place] [address] [address], [place], [place], [address], [place] [phone] SEC [place] Dry Eye Evaluation (chief complaint) No Information 0 8 Luisito OD Marylou. [address] [facility], [address], [place], [address], [place]. tel:[phone] Referring Provider: Luis A Rojas, [facility] [address], [place], [address] . tel:[phone] [facility], [address] [place], [place] [address] [address], [place], [place], [address], [place] tel:[phone] SEC Lana Celestin No Information 201 8 Luisito OD Marylou. [address] [facility], [address], [place], [address], [place]. tel:[phone] [facility], [address] [address], [place], [place], [address], [place] tel:[phone] SEC Mick SCHROEDER Professional Difficulty reading (chief complaint) No Information 6 Shilo Lizarraga. [address] [facility], [address], [place], [place], [address], [place]. tel:[phone] Referring Provider: Luis A Rojas, [address] [address], [place], [address] . tel:[phone] [employer] [facility], [facility] [address], [place], [place], [address], [place] tel:[phone] SEC [place] N [place] 1 [place] YAG PO OD (chief complaint) No Information 5 Miriam Castelanel. [address] [facility], [address], [place], [place], [address], [place]. tel:[phone] Referring Provider: Luis A Rojas, [address] [address], [place], [address] . tel:[phone] [employer] [facility], [address] [address], [place], [place], [address], [place] tel:[phone] SEC [place] N [place] YAG PC OD (chief complaint) No Information 0- 5 Corin Gunn. [facility], [address], [place], [place], [address], [place]. tel:[phone] Referring Provider: Luis A Rojas, [address] [address] [address], [place], [address] . tel:[phone] Office/outpa tient Visit, [facility], [facility], [facility] [address], [place], [place], [address], [place] tel:[phone] SEC Lenox N [place] Blurry vision (chief complaint) No Information 3- 5 Corin Gunn. [address], [address], [place], [place], [address], [place]. tel:[phone] Referring Provider: Luis A Rojas, [address] [place] [address] [address] [place] [facility] [address], [place], [address] . tel:[phone] [facility], [address] [place] [address] [address], [place], [place], [address], [place] [phone] SEC Mick [place] Professional F/u exam, postop (chief complaint) No Information 4 Wankum Zia. [address] [facility], [address], [place], [place], [address], [place]. tel:[phone] Referring Provider: Luis A Rojas, [address] [place] [address] [address] [place] [facility] [address], [place], [address] . tel:[phone] [facility], [address] [place] [address] [address], [place], [place], [address], [place] [phone] SEC [place] Professional F/u exam, postop (chief complaint) No Information 4 Wankum Zia. [address] [facility], [facility] [address], [place], [place], [address], [place]. tel:[phone] Referring Provider: Luis A Rojas, [address] [place] [address] [address] [place] [facility] [address], [place], [address] . tel:[phone] [facility], [address] [place] [address] [address], [place], [place], [address], [place] tel:[phone] SEC Mick [place] Professional 1 DAY PO PHACO OS (chief complaint) No Information 4 Bereket De La Torre. [facility] [facility], [address], [place], [address], [place]. tel:[phone] Referring Provider: Luis A Rojas, [address] [place] [address] [address] [place] [facility] [address], [place], [address] . tel:[phone] [facility], [address] [place], [place] [address] [address], [place], [place], [address], [place] tel:[phone] [facility] No Information Aug-0 6- 4 Corin Gunn. [facility] [address], [address], [place], [place], [address], [place]. tel:[phone] Referring Provider: Luis A Rojas, [facility] [address], [place], [address] . tel:[phone] [facility], [facility] [email or web address] [address], [place], [place], [address], [place] tel:[phone] SEC Lana Celestin No Information 0 4 Corin Gunn. [facility], [address], [place], [place], [address], [place]. tel:[phone] Referring Provider: Luis A Rojas, [facility] [address], [place], [address] . tel:[phone] [facility], [facility] [email or web address] [address], [place], [place], [address], [place] tel:[phone] SEC Lana Celestin No Information Jul-2 3- 4 Miriam Jones. [address] [facility], [address], [place], [place], [address], [place]. tel:[phone] Referring Provider: Luis A Rojas, [facility] [address], [place], [address] . tel:[phone] [facility], [facility] [email or web address] [address], [place], [place], [address], [place] tel:[phone] SEC Mick SCHROEDER Professional Blurry vision (chief complaint) No Information Jul-10 14- 4 Corin Gunn. [facility], [address], [place], [place], [address], [place]. tel:[phone] Referring Provider: Wil Cuba MD P, [address], [place], [address]. tel:[phone] [facility], [address], [place], [place], [address], [place] tel:[phone] SEC Lana Celestin No Information 0 4 Shilo Lizarraga. [address] [facility], [address], [place], [place], [address], [place]. tel:[phone] Family History Family Member Type Diagnosis Age At Onset Problem Family history of Diabetes clifford sorin Payers Payer name Insurance type Covered green party ID Authorrosemarya toni(s) Medicare [facility] [id number] A[employer] CI [id number] Social History Type Description Quantity Date Captured [...] family member states she has an adjustable IOL , but it is not Crystalens. Pt also [...] to Dry eye of left side Impression/Plan Follow up - Return i n 1 year with Zia Lao M.D. for Complete Exam. Impression/Plan - IO L's in good position; open pc. No signs of glaucoma or AMD OU. Will continue to monitor. Recommend Zaditor or Alaway for allergies. Return to clinic in 1 year for complete exam or sooner with any problems. Bilateral artificial lens implant - Educational material given Related to Bilateral artificial lens implant - Discussed refracti ve status, Patient defers [...] See l ist of assessments above - SCHED CE OS [...]
--- OUTSIDE RECORDS SUMMARY | 2025-02-07 10:47 | XMS_ITS | Encounter Summary ---
Author Organization [employer] [facility] Address 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
--- OUTSIDE RECORDS SUMMARY | 2025-02-07 10:47 | XMS_ITS | Referral Summary ---
Author Organization [facility] [address] [facility] Address [address] [place] [address] Care Team Providers Care Application Spec Name Role Phone Derik Mccauley MD Primary Care Provider [phone] Allergies Active Allergy Reactions Criticality Noted Date Comments Calcitonin,Tyler,Synthetic Unknown 06/13/20 24 Medications multivitamin tablet tablet take 1 tablet by oral route every day with food 0 1 Active coenzyme Q10 (CO Q-10) 150 mg capsule take one by oral route one time every day 0 2 Active cetirizine (ZyrTEC) 10 mg tablet Take one by mouth one time per day 0 0 7 Active aspirin (ECOTRIN) 325 mg EC tablet take 1 tablet by oral route every day 0 0 4 Active Additional Information Patient not taking.Reported on 06/13/2024 calcium carbonate-vitam in D3 (Calcium 600 + D,3,) 1500 mg (600 mg elemental) -200 units per tablet 5 Active krill/om3/dha/e pa/om6/lip/astx (KRILL OIL, OMEGA 3 AND 6, ORAL) 7 Active triamcinolone (Nasacort) 55 mcg nasal inhaler 0 Active resveratrol 250 mg capsule 5 Active traZODone (DESYREL) 50 mg tablet Take 1 tablet (50 mg total) by mouth daily as needed 3 Active Eliquis 5 mg tablet 4 Active Active Problems Problem Noted Date Diagnosed Date 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 Assessment & Plan (06/13/2024 11:06 AM CDT): Chronic, stable, very mild Will send a recommend any medication spite of the AFib which is not causing increased heart rate Assessment & Plan (07/09/2023 1:03 PM CDT): We will update TFTs Recommendations to follow Assessment & Plan (06/30/2022 1:22 PM CDT): Check TFTs Continue monitoring, as indicated Assessment & Plan (05/27/2021 10:05 AM CDT): Continue monitoring TFTs Treat if indicated Assessment & Plan (06/04/2020 10:37 AM CDT): Check TFT's Treat as indicated, but elevated T4 and/or T3 Assessment & Plan (06/06/2019 4:27 PM CDT): Will check thyroid function tests and start Tapazole if indicated Otherwise will continue to observe Assessment & Plan (06/07/2018 3:12 PM CDT): Check TFT's Treat if indicated Otherwise, continue monitoring. Assessment & Plan (06/24/2017 11:45 AM CDT): Check TFT's Treatment as indicated Osteopenia of multiple sites 06/24/2017 Assessment & Plan (06/13/2024 11:07 AM CDT): Continue on weight-bearing exercise Calcium and vitamin-D supplementation Will schedule bone density follow-up in 2 years Assessment & Plan (06/30/2022 1:23 PM CDT): DEXA requested continue Ca and vit D bid Assessment & Plan (05/27/2021 10:04 AM CDT): Importance of daily weight-bearing exercise prevention of fall was discussed Continue calcium and vitamin-D Will repeat bone density in 2 to 3 years Assessment & Plan (06/04/2020 10:42 AM CDT): DEXA reordered Assessment & Plan (06/06/2019 4:27 PM CDT): Bone density DEXA requested Assessment & Plan (06/24/2017 3:44 PM CDT): Ca and vit D intake discussed Request DEXA Vitamin D deficiency 06/24/2017 Overview (07/09/2023): Update 25 hydroxy vitamin-D level Well advice on adjusting dose of vitamin-D, if indicated Assessment & Plan (06/13/2024 11:07 AM CDT): Continue vitamin-D supplementation Assessment & Plan (06/30/2022 1:23 PM CDT): Check vit D Treat accordingly Assessment & Plan (05/27/2021 10:04 AM CDT): Will check vitamin-D levels and will adjust dose of supplements if needed or start ergocalciferol Assessment & Plan (06/04/2020 10:42 AM CDT): Will check vit D levels Adjust As indicated Assessment & Plan (06/07/2018 3:13 PM CDT): Check 25 OH vit D Adjust dose of vit D accordingly. 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 No changes in physical examination. We will continue to watch Assessment & Plan (06/04/2020 10:37 AM CDT): No symptoms No changes on PE Assessment & Plan (06/07/2018 3:14 PM CDT): Asymptomatic No changes in the size of the nodules, as per last ultrasound. Assessment & Plan (06/24/2017 3:45 PM CDT): Ultrasound performed ( see report ) No significant changes in dominant nodules as compared with ultrasound report from 2013 Social History Tobacco Use Types Packs/Day Years Used Date Smoking Tobacco: Never Smokeless Tobacco: Never Tobacco Cessation:Counseling Given: Not Answered Alcohol Use Standard Drinks/Week Comments No 0 (1 standard drink = 0.6 oz pur e alcohol) PHQ-2 Answer Date Recorded PHQ-2 Total Score (If total score is 3 or more points, staff should administer the PHQ-9) 0 06/30/2022 Comments Unknown Sex and Gender Information Value Date Recorded Sex Assigned at Not on file 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 Gender Identity Not on file Sexual Orientation Straight 06/03/2020 7: 01 PM CDT Last Filed Vital Signs Vital Sign Reading Time Taken Comments Blood Pressure 122/64 06/13/2024 10:27 AM CDT Pulse 73 06/13/2024 10:27 AM CDT Temperature - - Respiratory Rate 14 06/13/2024 10:27 AM CDT Oxygen Saturation - - Inhaled Oxygen Concentration - - Weight 71.3 kg (157 lb 3.2 oz) 06/13/2024 10:27 AM CDT Height 162.6 cm (5' 4.02 ) 07/09/2023 11:29 AM C DT Body Mass Index 26.97 07/09/2023 11:29 AM CDT Plan of Treatment Not on file Procedures Procedure Name Priority Date/Time Associated Diagnosis Comments DEXA AXIAL SKELETON BONE DENSITY 1 OR MORE SITES Schedule Routine, Read Routine (OP Routine) 09/08/2022 from Last 3 Months or Most Recently Relevant to Health Maintenance Results * Dexa Axial Skeleton Bone Density 1 or 2 Site (09/08/2022) Anatomical Region Laterality Modality Body N/A Radiographic Freida ging Irene Robbins MD IMG DXA PROCEDURES Final Result from Last 3 Months or Most Recently Relevant to Health Maintenance Insurance [place] [id number] [employer] Care Teams Application Spec Relationship Specialty Start Date End Date Derik Mccauley MD PCP - General Family Practice 07/20/23
--- OUTSIDE RECORDS SUMMARY | 2025-02-07 10:47 | XMS_ITS | Clinical Summary ---
Author Organization [facility] Address [address] [facility] [place] [address] Care Team Providers Care Social Work Case Manager Name Role Phone Marcio Ambriz MD Primary Care Provider [phone] Source Comments [facility],non-owned Affiliates and Associated Physician Practices is amultiple site organization consisting of ambulatory clinics and hospital sitesin [place], [place], [place] and [place]. This disclosure is being madepursuant to the Care Everywhere program and may not contain all information available regarding this patient. 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 Gender Identity Not on file Sexual Orientation Not on file Last Filed Vital Signs Vital Sign Reading Time Taken Comments Blood Pressure 126/74 03/09/2014 10:56 AM CDT Pulse 60 03/09/2014 10:56 AM CDT Temperature 36.6 C (97.8 F) 03/09/2014 10:56 AM CDT Respiratory Rate 16 09/19/2013 9:45 AM LABORER SAWMILL Oxygen Saturation 96% 09/19/2013 9:45 AM LABORER SAWMILL Inhaled Oxygen Concentration - - Weight 76.1 kg (167 lb 12.8 oz) 014 10:56 AM CDT Height 165.1 cm (5' 5 ) 09/19/2013 5:59 AM LABORER SAWMILL Body Mass Index 27.92 09/19/2013 5:59 AM LABORER SAWMILL Plan of Treatment Health Maintenance Due Date Last Done Comments BONE DENSITY TESTING 1940 MEDICARE AWV 12 MONTHS 1940 DTAP/TDAP/TD VACCINES (1 - Tdap) 1960 PNEUMOCOCCAL VACCINE 50+ (1 of 1 - PCV) 1991 ZOSTER VACCINE (1 of 2) 1991 Respiratory Syncytial Virus (RSV) Vaccine Pt: or over 60 yrs (1 - 1-dose 75+ series) 2016 COVID-19 VACCINE (1 - 2023-2 5 season) 2024 DEPRESSION SCREENING 10/11/2024 INFLUENZA VACCINE (Season Ended) 2025 HEPATITIS B VACCINE Aged Out No longe r eligible based on patient's age to complete this topic HIB VACCINE Aged Out No longer eligi ble based on patient's age to complete this topic HPV VACCINE Aged Out No longer eligi ble based on patient's age to complete this topic MENINGOCOCCAL (Group B) VACC INE SHARED DECISION-MAKING Aged Out No longer eligibl e based on patient's age to complete this topic MENINGOCOCCAL GROUPS A/C/Y/W VACCINE Aged Out No longer eligible b ased on patient's age to complete this topic [place] [address] MEDICARE [facility] MEDICARE Member Subscriber Plan / Payer (Ef fective for All Dates) Name:Angel Crockett Member ID:[id number] Relation to Subscriber:Self Name:Angel Crockett Subscriber ID:[id number] Payer ID:Not on file Group ID:Not on file Type:Medicare Address: [place] [id number] [place] [address] MEDICARE AET MEDICARE Member Subscriber Plan / Payer (Ef fective for All Dates) Name:Angel Crockett Member ID:[id number] Relation to Subscriber:Self Name:Angel Crockett Subscriber ID:[id number] Payer ID:Not on file Group ID:Not on file Type:Medicare Address: [place] [id number] [place] [address] MEDICARE Member Subscriber Plan / Payer (Ef fective for All Dates) Name:Fabiana Crockettbrianne Member ID:[id number] Relation to Subscriber:Self Name:Fabiana Crockettalyj carlos Subscriber ID:[id number] Payer ID:Not on file Group ID:Not on file Type:Medicare Address: [place] [id number] [facility] [facility] [place] [address] MEDICARE Member Subscriber Plan / Payer (Ef fective for All Dates) Name:Fabiana Crockettbrianne Member ID:[id number] Relation to Subscriber:Self Name:Keira Angel Subscriber ID:[id number] Payer ID:Not on file Group ID:Not on file Type:Medicare Address: [address] [place] [address] MEDICARE Member Subscriber Plan / Payer (Ef fective for All Dates) Name:Fabiana Crockettbrianne Member ID:[id number] Relation to Subscriber:Self Name:Keira Angel Subscriber ID:[id number] Payer ID:Not on file Group ID:Not on file Type:Medicare Address: [address] [place] [address] MEDICARE Member Subscriber Plan / Payer (Ef fective for All Dates) Name:KeiraAngel Member ID:[id number] Relation to Subscriber:Self Name:Fabiana Crockettbrianne Subscriber ID:[id number] Payer ID:Not on file Group ID:Not on file Type:Medicare Address: [place] [phone] [employer] Care Teams Social Work Case Manager Relationship Specialty Start Date End Date Marcio Ambriz MD [address] [facility] [address] [place] [address] PCP - General 08/21/13
--- OUTSIDE RECORDS SUMMARY | 2025-02-07 10:47 | XMS_ITS | Clinical Summary ---
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
--- OUTSIDE RECORDS SUMMARY | 2025-02-07 10:47 | XMS_ITS | Clinical Summary ---
Author Organization [facility] Address [address], [facility] [address] [place] [address] Phone Care Team Providers Care Gun Stocker Name Role Phone Nikita Lui DO Unavailable [phone] Devin Castaneda DO Primary Care Provider Medications polyethylene glycol (MIRALAX) Powder Mix the entire bottle with 64 oz of a clear liquid. Use as directed by the office for colonoscopy prep. 255 g 8 Active Immunizations Immunization Administration Dates Next Due Covid-19, Mrna, Lnp-s, PF, 1 00 mcg/0.5 mL Dose (Moderna) 12/30/2020,11/28/2020 Social History Tobacco Use Types Packs/Day Years Used Date Smoking Tobacco: Never Assessed Comments Unknown Sex and Gender Information Value Date Recorded Sex Assigned at Not on file Legal Sex Female 12:25 AM CDT Gender Identity Not on file Sexual Orientation Not on file Plan of Treatment Health Maintenance Due Date Last Done Comments Hepatitis C Virus (HCV) Screening 1940 TdaP Immunization 1940 Pneumococcal Immunization (5 0+ years) (1 of 1 - PCV) 1991 Zoster Immunization (1 of 2) 1991 Respiratory Syncytial Virus (RSV) Immunization (Adult) (1 - 1-dose 75+ series) 2016 Influenza Immunization (#1) 06/11/202406/12, 06/17/2019, 09/11/2017 SARS-COV-2 Immunization ( season) 2024 08/31/2021, 12/30/2020, 11/28/2020 Hepatitis B Immunization Aged Out No longer eligible based on patient's age to complete this topic Meningococcal Immunization (ACWY) Aged Out No longer eligible b ased on patient's age to complete this topic Rotavirus Immunization Aged Out No lo nger eligible based on patient's age to complete this topic Insurance MEDICARE Care Teams Gun Stocker Relationship Specialty Start Date End Date Devin Castaneda DO [address] [place] [address] PCP - General Internal Medicine 04/05/18 Nikita Lui DO Gastroenterology 04/05/18
--- OUTSIDE RECORDS SUMMARY | 2025-02-07 10:47 | XMS_ITS | Clinical Summary ---
Author Organization [facility] Address [address] [place] [address] Care Team Providers Care Foreign Language Instructor Name Role Phone Derik Mccauley MD Primary Care Provider [phone] Allergies Active Allergy Reactions Criticality Noted Date Comments Calcitonin,[place],Synthetic Unknown 06/13/20 24 Medications multivitamin tablet tablet [...] nodules as compared with ultrasound report from 2012 Medical History Medical History Date Comments Disorder of thyroid Thyroid dise ase History of multiple allergies Al lergies Osteoporosis Osteoporosis Hx Other Medical not claustropho bic; Comments: PKJ 06/27/2014 - Family History Medical History Relation Name Comments Other Other No family histo ry of Diabetes mellitus; Relation Name Status Comments Other Social History Tobacco Use Types Packs/Day Years [...] on file 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 Gender Identity Not on file Sexual Orientation Straight 06/03/2020 7: 01 PM CDT Obstetrics History Last Filed Vital Signs Vital Sign Reading [...] 07/09/2023 11:29 AM CDT Plan of Treatment Health Maintenance Due Date Last Done Comments Fall Risk Assessment 1941 DTaP/Tdap/Td Vaccine (1 - Tdap) 1952 Hepatitis B Screening 1959 Zoster Vaccine (1 of 2) 1991 Well Visit 65+ 2006 Pneumococcal vaccine 65+ (2 of 2 - PCV) 06/20/2011 06/20/2010 Depression Screening 06/30/2023 06/30/2022, 06/04/2020, 06/06/2019, Additional history exists Covid-19 Vaccine (3 - 2023-2 5 season) 2024 12/30/2020, 11/28/2020 Osteoporosis Screening-Bone Density Scan 09/08/2024 09/08/2022, 07/08/2017 Influenza Vaccine (Season Ended) 2025 06/17/20, 09/11/2017 Procedures Procedure Name Priority Date/Time Associated Diagnosis [...] Most Recently Relevant to Health Maintenance [place] [address] MEDICARE [employer] MEDICARE [facility] Address: [facility] [address] [place] [address] [employer]IL [employer] Care Teams Foreign Language Instructor Relationship Specialty Start Date End Date Derik Mccauley MD PCP - General Family Practice 07/20/23
== END 2025-02-07 09:49 | disposition home or self-care (01) ==
LOC: ANHIMG 09:50
PROVIDERS: PCP Nurse Practitioner Family; Visit Provider Family Medicine
DX: Z12.31 Encounter for screening mammogram for malignant neoplasm of breast (principal)
CPT/HCPCS: 77063; 77067

== ENCOUNTER 2025-08-12 19:26 | Emergency (ER) | payer MEDICARE, SELFPAY ==
--- OUTSIDE RECORDS SUMMARY | 2024-10-03 02:00 | XMS_ITS | Continuity of Care Document ---
[facility] Organization [facility] [place] [address] Kimball [address] [place] [id number] Phone Care Team Providers Care Hand Nailer Name Role Phone Isabell Moore OD Unavailable [...] Diagnoses Date Provider Providers Copied on Encounter [facility], [address] [facility] [address], [place], [place], [address], [place] tel:[phone] SEC [place] ALEXANDRE Professional Complete Exam (chief complaint) Dry eyesMeibomian gland dysfnct right eye, upper and lower eyelidsMeibom emma gland dysfnct left eye, upper and lower eyelidsPucker ing of macula, right eyeHx of LASIKBilatera l artificial lens implant 4 Oscar OD Isabell. [address] [place] [employer] [address], [address], [place], [place], [address], [place]. tel:[phone] Irene Robbins MD.Referri ng Provider: Luis A Rojas, [facility] [employer] [address], [place], [address] . tel:[phone] [facility], [facility] [employer] [address], [place], [place], [address], tel:[phone] SEC Mick SCHROEDER Professional Complete Exam (chief complaint) Drusen (degenerative ) of macula, right eyePuckering of macula, right eyePresence of intraocular lensDry eyes Sep- 2 J Luis Romero. [address], [address], [place], [place], [address], [place]. tel:[phone] Irene Robbins MD.Referri ng Provider: Luis A Rojas, [facility] [employer] [address], [place], [address] . tel:[phone] [facility], [facility] [employer] [address], [place], [place], [address], [place] tel:[phone] SEC Mick SCHROEDER Professional No Information Apr-0 2 J Luis Romero. [address], [address], [place], [place], [address], [place]. tel:[phone] Referring Provider: Luis A Rojas, [facility] [employer] [address], [place], [address] . tel:[phone] Office/outpa tient Visit, Est [facility], [facility] [employer] [address], [place], [place], [address], [place] tel:[phone] SEC Mick SCHROEDER Professional 6 mo Cornea check (chief complaint) Meibomian gland dysfunction (MGD) of both eyesSuperfici al punctate keratitis of both eyes Apr-0 1 J Luis Romero. [address], [address], [place], [place], [address], [place]. tel:[phone] Irene Robbins MD.Special ist: Petr Bradshaw, [address] [facility] [address], [place], [address]. tel:[phone] erring Provider: Luis A Rojas, [facility] [place] [employer] [address], [place], [address] . tel:[phone] [facility], [address] [place] [address] [address], [place], [place], [address], [place] tel:[phone] SEC Mick [place] Professional Complete Exam (chief complaint) Bilateral artificial lens implantMeibom emma gland dysfunction (MGD) of both eyesConjuncti vochalasis of both eyesPunctate keratitis, bilateralDrus en (degenerative ) of macula, right eye Oct-0 2-202 0 J Luis Romero. [address] [facility], [facility] [address], [place], [place], [address], [place]. tel:[phone] Irene Robbins MD.Referri ng Provider: Luis A Rojas, [facility] [place] [employer] [address], [place], [address] . tel:[phone] [facility], [facility] [employer] [facility] [address], [place], [place], [address], [place] tel:[phone] SEC Mick [place] Professional Complete Exam (chief complaint) Punctate keratitis, right eyePresence of intraocular lensMeibomian gland dysfunction (MGD) of both eyes Oct-0 1-201 9 J Luis Romero. [address] [facility], [facility] [address], [place], [place], [address], [place]. tel:[phone] Referring Provider: Luis A Rojas, [facility] [place] [employer] [address], [place], [address] . tel:[phone] Office/outpa tient Visit, Est [facility], [facility] [address], [place], [place], [address], [place] tel:[phone] SEC [place] Dry Eye F/U (chief complaint) Meibomian gland dysfunction (MGD) Oct-0 4201 8 Luisito OD Marylou. [address] [facility], [address], [place], [address], [place]. tel:[phone] Referring Provider: Luis A Rojas, [address] [place], [place] [address]crest [employer] [facility] [address], [place], [address] . tel:[phone] [facility], [address] [place] [address] [address], [place], [place], [address], [place] tel:[phone] SEC Mick SCHROEDER Professional Complete Exam (chief complaint) Bilateral artificial lens implantMeibom emma gland dysfunction (MGD)Superfic ial punctate keratitis of both eyes Oct-0 2-201 8 Dietz Nick. [address] [facility], [address], [place], [place], [address], [place]. tel:[phone] Referring Provider: Luis A Rojas, [facility] [place] [employer] [facility] [address], [place], [address] . tel:[phone] Office/outpa tient Visit, Est [facility], [address] [place] [address] [address], [place], [place], [address], [place] [phone] SEC [place] Dry Eye Evaluation (chief complaint) No Information 0 8 Luisito OD Marylou. [address] [facility], [address], [place], [address], [place]. tel:[phone] Referring Provider: Luis A Rojas, [facility] [employer] [facility] [address], [place], [address] . tel:[phone] [facility], [address] [place], [place] [address] [address], [place], [place], [address], [place] tel:[phone] SEC Lana Celestin No Information 201 8 Luisito OD Marylou. [address] [facility], [address], [place], [address], [place]. tel:[phone] [facility], [address] [address], [place], [place], [address], [place] tel:[phone] SEC Mick SCHROEDER Professional Difficulty reading (chief complaint) No Information 6 Shilo Lizarraga. [address] [facility], [address], [place], [place], [address], [place]. tel:[phone] Referring Provider: Luis A Rojas, [address] [address], [place], [address] . tel:[phone] [employer] [facility], [facility] [employer] [address], [place], [place], [address], [place] tel:[phone] SEC Lana N [place] 1 [place] YAG PO OD (chief complaint) No Information 5 Miriam Castelanel. [address] [facility], [address], [place], [place], [address], [place]. tel:[phone] Referring Provider: Luis A Rojas, [address], [place], [address] . tel:[phone] [employer] [facility], [address], [place], [place], [address], [place] tel:[phone] SEC Lana N [place] YAG PC OD (chief complaint) No Information 0- 5 Corin Gunn. [facility] [employer], [address], [place], [place], [address], [place]. tel:[phone] Referring Provider: Luis A Rojas, [address], [place], [address] . tel:[phone] Office/outpa tient Visit, [facility] [employer] [facility], [facility], [facility] [employer] [address], [place], [place], [address], [place] tel:[phone] SEC [place] N [place] Blurry vision (chief complaint) No Information 3- 5 Corin Gunn. [address], [address], [place], [place], [address], [place]. tel:[phone] Referring Provider: Luis A Rojas, [address] [place] [address] [employer] [facility] [address], [place], [address] . tel:[phone] [facility], [address] [place] [address] [address], [place], [place], [address], [place] [phone] SEC Mick [place] Professional F/u exam, postop (chief complaint) No Information 4 Wankum Zia. [address] [facility], [address], [place], [place], [address], [place]. tel:[phone] Referring Provider: Luis A Rojas, [address] [place] [address] [employer] [facility] [address], [place], [address] . tel:[phone] [facility], [address] [place] [address] [address], [place], [place], [address], [place] [phone] SEC [place] Professional F/u exam, postop (chief complaint) No Information 4 Wankum Zia. [address] [facility], [facility] [address], [place], [place], [address], [place]. tel:[phone] Referring Provider: Luis A Rojas, [address] [place] [address] [employer] [facility] [address], [place], [address] . tel:[phone] [facility], [address] [place] [address] [address], [place], [place], [address], [place] tel:[phone] SEC Mick [place] Professional 1 DAY PO PHACO OS (chief complaint) No Information 4 Bereket De La Torre. [facility], [address], [place], [address], [place]. tel:[phone] Referring Provider: Luis A Rojas, [address] [place] [address] [employer] [facility] [address], [place], [address] . tel:[phone] [facility], [address] [place], [place] [address], [place], [place], [address], [place] tel:[phone] [facility] No Information Aug-0 6- 4 Corin Gunn. [facility] [address] [address], [address], [place], [place], [address], [place]. tel:[phone] Referring Provider: Luis A Rojas, [facility] [address], [place], [address] . tel:[phone] [facility], [facility] [employer] [address], [place], [place], [address], [place] tel:[phone] SEC Lana Celestin No Information 0 4 Corin Gunn. [facility] [employer], [address], [place], [place], [address], [place]. tel:[phone] Referring Provider: Luis A Rojas, [facility] [employer] [address], [place], [address] . tel:[phone] [facility], [facility] [employer] [address], [place], [place], [address], [place] tel:[phone] SEC Lana Celestin No Information Jul-2 3- 4 Miriam Jones. [address] [facility], [address], [place], [place], [address], [place]. tel:[phone] Referring Provider: Luis A Rojas, [facility] [address], [place], [address] . tel:[phone] [facility], [facility] [employer] [address], [place], [place], [address], [place] tel:[phone] SEC Mick SCHROEDER Professional Blurry vision (chief complaint) No Information Jul-10 14- 4 Corin Gunn. [facility] [employer], [address], [place], [place], [address], [place]. tel:[phone] Referring Provider: Wil Cuba MD P, [address], [place], [address]. tel:[phone] [facility], [address] [place] [address], [place], [place], [address], [place] tel:[phone] SEC Lana Celestin No Information 0 4 Shilo Lizarraga. [address] [facility], [address], [place], [place], [address], [place]. tel:[phone] Family History Family Member Type Diagnosis Age At Onset Problem Family history of Diabetes clifford sorin Payers Payer name Insurance type Covered green party ID Authorrosemarya toni(s) Medicare [facility] [id number] [employer] CI [id number] Social History Type Description Quantity Date Captured [...]
--- OUTSIDE RECORDS SUMMARY | 2024-10-03 02:00 | XMS_ITS | Continuity of Care Document ---
Author Organization [facility] [place] [address] [facility] [address] [place] [id number] Phone Care Team Providers Care [employer] Name Role Phone Isabell Moore OD Unavailable Unavailable Allergies, Adverse Reactions, Alerts Substance Reaction Status Criticality CALCITONIN,SALMON,SYNTHETIC Active No Information Medications Medication Instructions Dosage Effective Dates (start - stop) Status Comments Eliquis 5 mg tablet take 1 tablet by oral route 2 times every day 5 MG - Active krill oil 500 mg capsule take 1 by oral route every day - Active Co Q-10 100 mg capsule take 1 by oral route every day - Active multivitamin tablet take 1 tablet by oral route every day with food - Active Calcium 500 500 mg calcium (1,250 mg) tablet take 1 by oral route every day - Active Zyrtec 10 mg capsule take [address] e every day - Active Nasacort 55 mcg nasal spray aerosol spray 1 by nasal route every day 1 - Active resveratrol 100 mg capsule take [...] Diagnoses Date Provider Providers Copied on Encounter [facility], [address] [facility] [address], [place], [place], [address], [place] tel:[phone] SEC [place] ALEXANDRE Professional Complete Exam (chief complaint) Dry eyesMeibomian gland dysfnct right eye, upper and lower eyelidsMeibom emma gland dysfnct left eye, upper and lower eyelidsPucker ing of macula, right eyeHx of LASIKBilatera l artificial lens implant 4 Oscar OD Isabell. [address], [address], [place], [place], [address], [place]. tel:[phone] Irene Robbins MD.Referri ng Provider: Luis A Rojas, [facility] [address], [place], [address] . tel:[phone] [facility], [facility] [employer] [address], [place], [place], [address], tel:[phone] SEC Mick SCHROEDER Professional Complete Exam (chief complaint) Drusen (degenerative ) of macula, right eyePuckering of macula, right eyePresence of intraocular lensDry eyes Sep- 2 J Luis Romero. [address], [address], [place], [place], [address], [place]. tel:[phone] Irene Robbins MD.Referri ng Provider: Luis A Rojas, [facility] [address], [place], [address] . tel:[phone] [facility], [facility] [employer] [address], [place], [place], [address], [place] tel:[phone] SEC Mick SCHROEDER Professional No Information Apr-0 2 J Luis Romero. [address], [address], [place], [place], [address], [place]. tel:[phone] Referring Provider: Luis A Rojas, [facility] [address], [place], [address] . tel:[phone] Office/outpa tient Visit, Est [facility], [facility] [employer] [address], [place], [place], [address], [place] tel:[phone] SEC Mcik SCHROEDER Professional 6 mo Cornea check (chief complaint) Meibomian gland dysfunction (MGD) of both eyesSuperfici al punctate keratitis of both eyes Apr-0 1 J Luis Romero. [address], [address], [place], [place], [address], [place]. tel:[phone] Irene Robbins MD.Special ist: Petr Bradshaw, [address] [facility] [address], [place], [address]. tel:[phone] erring Provider: Luis A Rojas, [facility] [address], [place], [address] . tel:[phone] [facility], [address] [place] [address] [address], [place], [place], [address], [place] tel:[phone] SEC [place] Professional Complete Exam (chief complaint) Bilateral artificial lens implantMeibom emma gland dysfunction (MGD) of both eyesConjuncti vochalasis of both eyesPunctate keratitis, bilateralDrus en (degenerative ) of macula, right eye Oct-0 2-202 0 J Luis Romero. [address] [facility], [facility] [address], [place], [place], [address], [place]. tel:[phone] Irene Robbins MD.Referri ng Provider: Luis A Rojas, [facility] [address], [place], [address] . tel:[phone] [facility], [facility] [employer] [facility] [address], [place], [place], [address], [place] tel:[phone] SEC [place] Professional Complete Exam (chief complaint) Punctate keratitis, right eyePresence of intraocular lensMeibomian gland dysfunction (MGD) of both eyes Oct-0 1-201 9 J Luis Romero. [address] [facility], [facility] [address], [place], [place], [address], [place]. tel:[phone] Referring Provider: Luis A Rojas, [facility] [address], [place], [address] . tel:[phone] Office/outpa tient Visit, Est [facility], [facility] [address] [facility] [address], [place], [place], [address], [place] tel:[phone] SEC [place] Dry Eye F/U (chief complaint) Meibomian gland dysfunction (MGD) Oct-0 4201 8 Luisito OD Marylou. [address] [facility], [address], [place], [address], [place]. tel:[phone] Referring Provider: Luis A Rojas, [address] [place], [place] [address]crest [address] [facility] [address], [place], [address] . tel:[phone] [facility], [address] [place] [address] [address], [place], [place], [address], [place] tel:[phone] SEC Mick SCHROEDER Professional Complete Exam (chief complaint) Bilateral artificial lens implantMeibom emma gland dysfunction (MGD)Superfic ial punctate keratitis of both eyes Oct-0 2-201 8 Dietz Nick. [address] [facility], [address], [place], [place], [address], [place]. tel:[phone] Referring Provider: Luis A Rojas, [facility] [address] [facility] [address], [place], [address] . tel:[phone] Office/outpa tient Visit, Est [facility], [address] [place] [address] [address], [place], [place], [address], [place] [phone] SEC [place] Dry Eye Evaluation (chief complaint) No Information 0 8 Luisito OD Marylou. [address] [facility], [address], [place], [address], [place]. tel:[phone] Referring Provider: Luis A Rojas, [facility] [employer] [facility] [address], [place], [address] . tel:[phone] [facility], [address] [place], [place] [address] [address], [place], [place], [address], [place] tel:[phone] SEC Lana Celestin No Information 201 8 Luisito OD Marylou. [address] [facility], [address], [place], [address], [place]. tel:[phone] [facility], [address], [place], [place], [address], [place] tel:[phone] SEC Mick SCHROEDER Professional Difficulty reading (chief complaint) No Information 6 Shilo Lizarraga. [address] [facility], [address], [place], [place], [address], [place]. tel:[phone] Referring Provider: Luis A Rojas, [address], [place], [address] . tel:[phone] [facility] Center[facility], [facility] [employer] [address], [place], [place], [address], [place] tel:[phone] SEC Lana N [address] 1 [place] YAG PO OD (chief complaint) No Information 5 Miriam Castelanel. [address] [place] [facility], [address], [place], [place], [address], [place]. tel:[phone] Referring Provider: Luis A Rojas, [address], [place], [address] . tel:[phone] [facility] Center[facility], [address], [place], [place], [address], [place] tel:[phone] SEC Lana N [place] YAG PC OD (chief complaint) No Information 0- 5 Corin Gunn. [facility] [address], [address], [place], [place], [address], [place]. tel:[phone] Referring Provider: Luis A Rojas, [address], [place], [address] . tel:[phone] Office/outpa tient Visit, [facility], [facility], [facility] [employer] [address], [place], [place], [address], [place] tel:[phone] SEC [place] [address] Blurry vision (chief complaint) No Information 3- 5 Corin Gunn. [address], [address], [place], [place], [address], [place]. tel:[phone] Referring Provider: Luis A Rojas, [address] [place] [address] [address] [facility] [address], [place], [address] . tel:[phone] [facility], [address] [place] [address] [address], [place], [place], [address], [place] [phone] SEC [place] Professional F/u exam, postop (chief complaint) No Information 4 Wankum Zia. [address] [facility], [address], [place], [place], [address], [place]. tel:[phone] Referring Provider: Luis A Rojas, [address] [place] [address] [address] [facility] [address], [place], [address] . tel:[phone] [facility], [address] [place] [address] [address], [place], [place], [address], [place] [phone] SEC [place] Professional F/u exam, postop (chief complaint) No Information 4 Wankum Zia. [address] [facility], [facility] [address], [place], [place], [address], [place]. tel:[phone] Referring Provider: Luis A Rojas, [address] [place] [address] [address] [facility] [address], [place], [address] . tel:[phone] [facility], [address] [place] [address] [address], [place], [place], [address], [place] tel:[phone] SEC [place] Professional 1 DAY PO PHACO OS (chief complaint) No Information 4 Bereket De La Torre. [facility], [address], [place], [address], [place]. tel:[phone] Referring Provider: Luis A Rojas, [address] [place] [address] [address] [facility] [address], [place], [address] . tel:[phone] [facility], [address] [place], [place] [address] [address], [place], [place], [address], [place] tel:[phone] [facility][1] No Information Aug-0 6- 4 Corin Gunn. [facility] [address], [address], [place], [place], [address], [place]. tel:[phone] Referring Provider: Luis A Rojas, [facility] [address], [place], [address] . tel:[phone] [facility], [facility] [employer] [address], [place], [place], [address], [place] tel:[phone] SEC Lana Celestin No Information 0 4 Corin Gunn. [facility] [address], [address], [place], [place], [address], [place]. tel:[phone] Referring Provider: Luis A Rojas, [facility] [address], [place], [address] . tel:[phone] [facility], [facility] [employer] [address], [place], [place], [address], [place] tel:[phone] SEC Lana Celestin No Information Jul-2 3- 4 Miriam Jones. [address] [place] [facility], [address], [place], [place], [address], [place]. tel:[phone] Referring Provider: Luis A Rojas, [facility] [address], [place], [address] . tel:[phone] [employer] [facility], [facility] [employer] [address], [place], [place], [address], [place] tel:[phone] SEC Mick SCHROEDER Professional Blurry vision (chief complaint) No Information Jul-10 14- 4 Corin Gunn. [facility] [address], [address], [place], [place], [address], [place]. tel:[phone] Referring Provider: Wil Cuba MD P, [address], [place], [address]. tel:[phone] [facility], [address], [place], [place], [address], [place] tel:[phone] SEC Lana Celestin No Information 0 4 Shilo Lizarraga. [address] [facility], [address], [place], [place], [address], [place]. tel:[phone] Family History Family Member Type Diagnosis Age At Onset Problem Family history of Diabetes clifford sorin Payers Payer name Insurance type Covered green party ID Authorrosemarya toni(s) Medicare [facility] [id number] [employer] CI [id number] Social History Type Description Quantity Date Captured [...] d to Meibomian gland dysfunction (MGD) Impression/Plan Warm compress and massage Relate d to Dry eye of left side Impression/Plan Bilateral artificial lens implant - Educational material [...] Related to After cataract limiting vision - Discussed dx with pt. Discussed glare [...] to See list of assessments above - 3-4 weeks po yag O S with ? yag pc od if she feels os va has improved. 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 Coombs to review chart re postop myope Related to Pseudophakia - 1 week post op pha co with IOL OS. Healing well. Slightly near sighted. Medication instillation and post op instructions reviewed. RTC as scheduled with Dr Coombs. Related to See list of assessments above - as scheduled with Dr Corin [place] kory to See list of assessments above - One day s/p phaco with IOL OS. IOL in good position. Medication instillation and post op instructions reviewed. Pt understands shield use. RTC as scheduled or sooner if problems. Related to See list of assessments above - as scheduled Related to See l ist of assessments above - Cataracts account for the patient's complaints. [...] today's exam. 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
--- OUTSIDE RECORDS SUMMARY | 2025-08-12 19:29 | XMS_ITS | Encounter Summary ---
Author Organization [employer] [facility] Address 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
--- OUTSIDE RECORDS SUMMARY | 2025-08-12 19:29 | XMS_ITS | Clinical Summary ---
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
--- OUTSIDE RECORDS SUMMARY | 2025-08-12 19:29 | XMS_ITS | Clinical Summary ---
Author Organization [facility] Address [address] [place] [address] Care Team Providers Care Door Worker Name Role Phone Derik Mccauley MD Primary Care Provider [phone] Allergies Active Allergy Reactions Criticality Noted Date Comments Calcitonin,[place],Synthetic Unknown 06/13/20 24 Medications cetirizine (ZyrTEC) 10 mg tablet Take one by mouth one time per day 0 0 09/27/2007 Active calcium carbonate-vitami n D3 (Calcium 600 + D,3,) 1500 mg (600 mg elemental) -200 units per tablet 10/11/2004 Ac tive krill/om3/dha/ep a/om6/lip/astx (KRILL OIL, OMEGA 3 AND 6, ORAL) 10/11/2016 Active resveratrol 250 mg capsule 10/11/2014 Active traZODone (DESYREL) 50 mg tablet Take 1 tablet (50 mg total) by mouth daily as needed 06/21/2023 Active Eliquis 5 mg tablet 06/08/[address] (PROTONIX) 40 mg EC tablet Take 1 tablet (40 mg total) by mouth 2 (two) times a day 05/07/2025 Active traZODone 10 mg/mL solution 50 mg 06/23/2023 Acti ve cetirizine 10 mg capsule daily 08/16/2023 Active coenzyme Q08-M-gbatmdpxf 100-20 mg capsule daily 12/12/2019 Active multivit with minerals/lutein (MULTIVITAMIN 50 PLUS ORAL) daily 12/12/2019 Active famotidine (PEPCID) 20 mg tablet 06/12/2025 Active Active Problems Problem Noted Date Diagnosed Date Chronic rhinitis 06/13/2025 Gastric ulcer 06/13/2025 GERD (gastroesophageal reflux disease) Insomnia 06/13/2025 Left knee pain 06/13/2025 Pain of left thigh 06/13/2025 Right knee pain 06/13/2025 Pain of left great toe 06/13/2025 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 Hyperthyroidism, subclinical 06/13/2025 Vitamin D deficiency, unspecified 07/19/2019 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 Assessment & Plan (06/13/2025 1:20 PM CDT): Chronic, stable, very mild Would not recommend any medication AFib is not causing increased heart rate Assessment [...] Check 25 oh vit D Treat accordingly Localized swelling, mass, and lump of head 08/25 Non-toxic multinodular goiter 08/16/2013 Overview (01/13/2017): NONTOX [...] as compared with ultrasound report from 2012 Pulmonary embolism 07/20/2013 Resolved Problems Problem Noted Date Diagnosed Date Resolved Date Abnormal mammogram of right breast 06/13/2025 06/13/2025 Encounters Date Type Department Care Team Description 06/13/2025 1:00 PM CDT Office Visit [facility] [address] [address] Irene Robbins MD Osteopenia of multiple sites (Primary Dx) from Last 3 Months Immunizations Immunization Administration Dates Next Due COVID-19 MRNA (MODERNA) .5 M L (50 MCG) VACCINE (12 YEARS AND UP) 08/31/2021 DTaP 03/09/2023 Influenza, Quadrivalent, Hig h Dose, Preservative Free, Intrr 07/27/2021 Influenza, Trivalent, High D ose, Split, Preservative Free, Intramuscular 09/11/2017 Influenza, Trivalent, IM (MDV) 06/17/2019 Pneumococcal Polysaccharide PPV23 06/20/2010 Medical History Medical History Date Comments Disorder [...] on file 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 Gender Identity Not on file Sexual Orientation Straight 06/03/2020 7: 01 PM CDT Last Filed Vital Signs Vital Sign Reading Time Taken Comments Blood Pressure 118/70 06/13/2025 1:13 PM CDT Pulse 73 06/13/2024 10:27 AM CDT Temperature - - Respiratory Rate 14 06/13/2024 10:2 7 AM CDT Oxygen Saturation - - Inhaled Oxygen Concentration - - Weight 70.2 kg (154 lb 12.8 oz) 06/13/2025 1:13 PM CDT Height 162.6 cm (5' 4) 06/13/2025 1:13 PM CDT Body Mass Index 26.57 06/13/2025 1:13 PM CDT Plan of Treatment Health Maintenance Due Date Last Done Comments Fall Risk Assessment 1941 Hepatitis B Screening 1959 Well Visit 65+ 2006 Pneumococcal vaccine 65+ (2 of 2 - PCV) 06/20/2011 06/20/2010 Zoster Vaccine (2 of 3) 05/04/2023 03/09/2023 Depression Screening 06/30/2023 06/30/2022, 06/04/2020, 06/06/2019, Additional history exists Osteoporosis Screening-Bone Density Scan 09/08/2024 09/08/2022, 07/08/2017 Covid-19 Vaccine (4 - 2024-2 6 season) 2025 08/31/2021, 12/30/2020, 11/28/2020 Influenza Vaccine (#1) 2025 1, 06/17/2019, 09/11/2017 DTaP/Tdap/Td Vaccine (2 - Tdap) 03/09/2033 3 Procedures Procedure Name Priority Date/Time Associated Diagnosis [...] Recently Relevant to Health Maintenance [place] [address] [place] [address] [place] [address] MEDICARE [facility] Care Teams Door Worker Relationship Specialty Start Date End Date Derik Mccauley MD PCP - General Family Practice 07/20/23
--- OUTSIDE RECORDS SUMMARY | 2025-08-12 19:29 | XMS_ITS | Clinical Summary ---
Author Organization [facility] Address [address], [address] [place] [address] Phone Care Team Providers Care Binder Sorter Name Role Phone Nikita uLi DO Unavailable [phone] Devin Castaneda DO Primary Care Provider Medications [...] 1991 Zoster Immunization (1 of 2) 1991 Medicare Initial AWV [id number] 07/11/2000 Respiratory Syncytial Virus (RSV) Immunization (Adult) (1 - 1-dose 75+ series) 2016 Influenza Immunization (#1) 06/11/202506/12, 06/17/2019, 09/11/2017 SARS-COV-2 Immunization ( season) 2025 08/31/2021, 12/30/2020, 11/28/2020 Hepatitis B Immunization Aged Out No longer eligible based on patient's age to complete this topic Human Papillomavirus (HPV) Immunization Aged Out No longer eligible b ased on patient's age to complete this topic Meningococcal Immunization (ACWY) Aged Out No longer eligible b ased on patient's age to complete this topic Rotavirus Immunization Aged Out No lo nger eligible based on patient's age to complete this topic [place] [address] MEDICARE Care Teams Binder Sorter Relationship Specialty Start Date End Date Devin Castaneda DO [address] [place] [address] PCP - General Internal Medicine 04/05/18 Nikita Lui DO Gastroenterology 04/05/18
[2025-08-12 19:34] VITALS: BP 176/83; PULSE 79; RESP 20; TEMP 36.7; O2SAT 100
--- OUTSIDE RECORDS SUMMARY | 2025-08-12 23:17 | XMS_ITS | Clinical Summary ---
Author Organization [facility] Address [address] [place] [address] Phone Care Team Providers Care Bridge Game Director Name Role Phone Nikita Lui DO Unavailable [phone] Devin Castaneda DO Primary Care Provider [...] to complete this topic [place] [address] MEDICARE Care Teams Bridge Game Director Relationship Specialty Start Date End Date Devin Castaneda DO [address] [place] [address] PCP - General Internal Medicine 04/05/18 Nikita Lui DO Gastroenterology 04/05/18
--- OUTSIDE RECORDS SUMMARY | 2025-08-12 23:17 | XMS_ITS | Clinical Summary ---
Author Organization 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
--- OUTSIDE RECORDS SUMMARY | 2025-08-12 23:17 | XMS_ITS | Encounter Summary ---
Author Organization [facility] Address 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
--- OUTSIDE RECORDS SUMMARY | 2025-08-12 23:17 | XMS_ITS | Clinical Summary ---
Author Organization [facility] Address [address] [place] [address] Care Team Providers Care Tamping Machine Operator Name Role Phone Derik Mccauley MD Primary Care Provider [phone] Allergies Active Allergy Reactions Criticality Noted Date Comments Calcitonin,[place],Synthetic Unknown 06/13/20 24 Medications cetirizine (ZyrTEC) 10 [...] 10 mg capsule daily 08/16/2023 Active coenzyme Q06-L-micqhugza 100-20 mg capsule daily 12/12/2019 Active multivit [...] Description 06/13/2025 1:00 PM CDT Office Visit [facility] of [address] [address] Irene Robbins MD Osteopenia of [...] on file 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
--- OUTSIDE RECORDS SUMMARY | 2025-08-12 23:17 | XMS_ITS | Clinical Summary ---
Author Organization [facility] Address [address] [place] [address] Care Team Providers Care Plastic Surgery Specialist Name Role Phone Marcio Ambriz MD Primary Care Provider [phone] Source Comments [facility],non-owned Affiliates and Associated Physician Practices is amultiple site organization consisting of ambulatory clinics and hospital sitesin [place], [place], [place] and [place]. This disclosure is being madepursuant to the Care Everywhere program and may not contain all information available regarding this patient. 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 Gender Identity Not on file Sexual Orientation Not on file Last Filed Vital Signs Vital Sign Reading Time Taken Comments Blood Pressure 126/74 03/09/2014 10:56 AM CDT Pulse 60 03/09/2014 10:56 AM CDT Temperature 36.6 C (97.8 F) 03/09/2014 10:56 AM CDT Respiratory Rate 16 09/19/2013 9:45 AM FLIGHT COORDINATOR Oxygen Saturation 96% 09/19/2013 9:45 AM FLIGHT COORDINATOR Inhaled Oxygen Concentration - - Weight 76.1 kg (167 lb 12.8 oz) 014 10:56 AM CDT Height 165.1 cm (5' 5) 09/19/2013 5:59 AM FLIGHT COORDINATOR Body Mass Index 27.92 09/19/2013 5:59 AM FLIGHT COORDINATOR Plan of Treatment Health Maintenance Due Date Last Done Comments BONE DENSITY TESTING 1940 MEDICARE AWV 12 MONTHS 1941 DTAP/TDAP/TD VACCINES (1 - Tdap) 1960 PNEUMOCOCCAL VACCINE 50+ (1 of 1 - PCV) 1991 ZOSTER VACCINE (1 of 2) 1991 Respiratory Syncytial Virus (RSV) Vaccine Pt: or over 60 yrs (1 - 1-dose 75+ series) 2016 DEPRESSION SCREENING 10/11/2024 COVID-19 VACCINE (1 - 2023-2 5 season) 2025 INFLUENZA VACCINE (#1) 2025 HEPATITIS B VACCINE Aged Out No [...] age to complete this topic [place] [address] MEDICARE [facility] MEDICARE Member Subscriber Plan / Payer (Ef fective for All Dates) Name:Angel Crockett Member ID:[id number] Relation to Subscriber:Self Name:Angel Crockett Subscriber ID:[id number] Payer ID:Not on file Group ID:Not on file Type:Medicare Address: [place] [id number] [place] [address] MEDICARE AET MEDICARE Member Subscriber Plan / Payer (Ef fective for All Dates) Name:Angel Crockett Member ID:[id number] Relation to Subscriber:Self Name:Angel Crockett Subscriber ID:[id number] Payer ID:Not on file Group ID:Not on file Type:Medicare Address: [place] [id number] [place] [address] MEDICARE Member Subscriber Plan / Payer (Ef fective for All Dates) Name:Fabiana Crockettbrianne Member ID:[id number] Relation to Subscriber:Self Name:Fabiana Crockettalyj carlos Subscriber ID:[id number] Payer ID:Not on file Group ID:Not on file Type:Medicare Address: [place] [id number] [facility] [place] [address] MEDICARE Member Subscriber Plan / Payer (Ef fective for All Dates) Name:Fabiana Crockettbrianne Member ID:[id number] Relation to Subscriber:Self Name:Keira Angel Subscriber ID:[id number] Payer ID:Not on file Group ID:Not on file Type:Medicare Address: [address] [place] [address] MEDICARE Member Subscriber Plan / Payer (Ef fective for All Dates) Name:Fabiana Crockettbrianne Member ID:[id number] Relation to Subscriber:Self Name:Keira Angel Subscriber ID:[id number] Payer ID:Not on file Group ID:Not on file Type:Medicare Address: [address] [place] [address] MEDICARE Member Subscriber Plan / Payer (Ef fective for All Dates) Name:KeiraAngel Member ID:[id number] Relation to Subscriber:Self Name:Fabiana Crockettbrianne Subscriber ID:[id number] Payer ID:Not on file Group ID:Not on file Type:Medicare Address: [place] [id number] [employer] Care Teams Plastic Surgery Specialist Relationship Specialty Start Date End Date Marcio Ambriz MD [address] [address] [place] [address] PCP - General 08/21/13
[2025-08-12 23:19] LABS: Hematocrit 35.0 % (37.0-47.0); Hemoglobin 11.1 g/dL (12.0-15.0); Immature Granulocyte Percent A 0.0 % (0-0.5); Lymphocytes Absolute Auto 1.09 K/mm3 (0.9-3.2); Mean Corpuscular HGB Conc 31.7 g/dl (32-36); Mean Corpuscular Hemoglobin 24.7 pg (26-34); Mean Corpuscular Volume 77.8 fl (80-100); Nucleated Red Blood Cells Absolute Auto 0.000 K/mm3 (0.0-0.012); Nucleated Red Blood Cells Perc 0.0 % (0.0-0.2); Platelet Count Result 229 k/mm3 (150-375); Red Blood Count 4.50 M/mm3 (4.2-5.4); White Blood Count 5.2 K/mm3 (4.5-10.0)
[2025-08-12 23:30] LABS: INR 1.2; Prothrombin Time 15.4 Seconds (11.1-14.7)
[2025-08-12 23:31] LABS: Partial Thromboplastin Time 29.3 Seconds (22.3-36.8)
[2025-08-12 23:38] LABS: Anion Gap 7 mmol/L (4-12); Blood Urea Nitrogen 16 mg/dL (7-17); Calcium 8.8 mg/dL (8.4-10.2); Carbon Dioxide 26 mmol/L (22-30); Chloride 106 mmol/L (98-107); Estimated CRCL calculation 43 ml/min; Estimated Glomerular Filt Rate > 60; Glucose 123 mg/dL (65-110); Potassium 3.9 mmol/L (3.4-5.0); Sodium 139 mmol/L (137-145)
--- NOTE | 2025-08-13 00:39 | ED.EXTPRO ---
HPI - Extremity Problem General Chief complaint: Extremity Problem,Nontraumatic Stated complaint: SENT IN TO R/O DVT Time Seen by Provider: 08/12/25 23:07 History of Present Illness HPI Narrative: 84-year-old female with history of AFib on Eliquis and previous DVT presenting to the emergency department for bilateral lower extremity swelling. States she recently got off of a 22 are flight from [facility] today and has been complain of bilateral leg and ankle swelling for 2-3 days. States she has been doing lots of walking during her visit to [facility] and has a history of venous insufficiency. No history of heart failure. No urinary complaints. No chest pain or difficulty in breathing. Was otherwise in her normal state of health. No traumatic injuries. Came in to get ruled out from a DVT. Related Data Home Medications ?Medication ?Instructions ?Recorded ?Confirmed ?Last Taken ?Type coenzyme Q10 10 mg capsule (Co 10 mg PO DAILY 12/12/19 07/03/25 Unknown History Q-10) krill oil 500 mg capsule 500 mg PO DAILY 12/12/19 07/03/25 Unknown History multivitamin 1 tablet PO DAILY 12/12/19 07/03/25 Unknown History cetirizine 10 mg capsule (Zyrtec) 10 mg PO DAILY 08/16/23 07/03/25 Unknown History cholecalciferol (vitamin D3) 125 125 mcg PO DAILY 05/18/24 07/03/25 Unknown History mcg (5,000 unit) capsule Allergies Allergy/AdvReac Type Severity Reaction Status Date / Time No Known Allergies Allergy Verified 08/12/25 19:28 Review of Systems Review of Systems: As [facility] Past Medical History Medical History Helicobacter pylori gastritis Gastric ulcer Arthritis Screening for breast cancer Left knee pain Right knee pain Pain of left thigh Encounter for general medical examination Pain of left great toe History of vaginal delivery Chronic rhinitis Hx pulmonary embolism Surgical History Surgical History History of carpal tunnel surgery Family History Family History Sibling Patient's brother is in good health Diabetes mellitus Mother Patient's mother is Father Patient's father is Social History Social History Smoking status: Never smoker Second hand tobacco smoke exposure: No Alcohol intake: never Substance use: never Substance use type: does not use Do You Feel Safe in your Home?: Yes Lack of Transportation: No Lack of Food: Never True Current Housing: I Have Housing Concerned About Future Housing: No Difficulty Paying Gas/Electric Bills: No Difficulty Paying for Meds: No Currently Unemployed: No Education: Grade School Difficulty w/ Childcare or Family Care: No Living arrangements: with friend(s) Occupation/Education: retired Gender identity (if verbalized by the patient): Female Spiritual care concerns: No Exam Narrative: GENERAL: [Well-appearing, well-nourished, and in no acute distress.] HEAD: [Normocephalic, atraumatic.] EYES: [PERRLA and EOMI.] ENT: Nares clear, no rhinorrhea or epistaxis. Mucous membranes moist. NECK: Supple. CHEST: [Clear to auscultation. No respiratory distress.] HEART: [Regular rate and rhythm]. No murmur heard. [Normal peripheral pulses.] ABDOMEN: [Soft, nondistended], [nontender], [No rigidity or guarding] EXTREMITIES: Normal range of motion. Bilateral pitting ankle edema, venous insufficiency noted with spider veins that mohit with direct pressure and then quickly rebound. 2+ pulses and warm extremity. Full range of motion of the bilateral lower extremities. No calf asymmetry or tenderness to palpation. No overlying skin discoloration or rashes concerning for a cellulitic infection. No lacerations or wounds. SKIN: Warm, dry, no rash. NEURO: [No focal deficits]. Alert and oriented [x3.] PSYCH: [Normal mood and affect.] Course Vital Signs Vital signs: Vital Signs Temperature 36.7 C 08/12/25 19:34 Pulse Rate 79 08/12/25 19:34 Respiratory Rate 20 08/12/25 19:34 Blood Pressure 176/83 H 08/12/25 19:34 Pulse Oximetry 100 08/12/25 19:34 Temperature 36.7 C 08/12/25 19:34 Pulse Rate 79 08/12/25 19:34 Respiratory Rate 20 08/12/25 19:34 Blood Pressure 176/83 H 08/12/25 19:34 Pulse Oximetry 100 08/12/25 19:34 MDM - Extremity (Nontraumatic) MDM Narrative Medical decision making narrative: 84-year-old female with history of AFib on Eliquis and previous DVT presenting to the emergency department for bilateral lower extremity swelling. States she recently got off of a 22 are flight from [facility] today and has been complain of bilateral leg and ankle swelling for 2-3 days. States she has been doing lots of walking during her visit to [facility] and has a history of venous insufficiency. No history of heart failure. No urinary complaints. No chest pain or difficulty in breathing. Was otherwise in her normal state of health. No traumatic injuries. Came in to get ruled out from a DVT. Normal range of motion. Bilateral pitting ankle edema, venous insufficiency noted with spider veins that mohit with direct pressure and then quickly rebound. 2+ pulses and warm extremity. Full range of motion of the bilateral lower extremities. No calf asymmetry or tenderness to palpation. No overlying skin discoloration or rashes concerning for a cellulitic infection. No lacerations or wounds. Patient is hemodynamically stable without any tachycardia, fever or hypoxia. Symptoms consistent with dependent edema given the symmetry with low suspicion DVT but patient is concerned given her history. Laboratory studies obtained as well as a D-dimer. These studies were unremarkable and D-dimer negative and I relayed this to the patient who still was concerned about a blood clot. We do not have ultrasonography at this hour. Outpatient ultrasound arranged for 7:00 a.m. and patient relayed this information. Given the prescription to take to her appointment. Will follow-up with her primary care provider. Safe for discharge and given treatment regimen encouragement for dependent edema with NSAIDS, elevation, compression and rest. Lab Data 08/12/25 23:14 08/12/25 23:14 Labs: Lab Results 08/12/25 08/12/25 08/12/25 Range/Units 23:14 23:14 23:14 WBC 5.2 (4.5-10.0) K/mm3 RBC 4.50 (4.2-5.4) M/mm3 Hgb 11.1 L (12.0-15.0) g/dL Hct 35.0 L (37.0-47.0) % MCV 77.8 L (80-100) fl MCH 24.7 L (26-34) pg MCHC 31.7 L (32-36) g/dl RDW 15.7 H (11.5-14.5) % Plt Count 229 (150-375) k/mm3 MPV 8.8 (7.4-10.4) fl Immature Gran % (Auto) 0.0 (0-0.5) % Neut % (Auto) 67.6 (45.5-73.1) % Lymph % (Auto) 21.0 (18.3-44.2) % Mckenzie % (Auto) 8.5 (2.6-8.5) % Eos % (Auto) 2.3 (0-4.4) % Baso % (Auto) 0.6 (0.2-1.2) % Lymph # (Auto) 1.09 (0.9-3.2) K/mm3 Mckenzie # (Auto) 0.4 (0.1-0.6) K/mm3 Eos # (Auto) 0.1 (0-0.3) K/mm3 Baso # (Auto) 0.0 (0.0-0.1) K/mm3 Abs Immat Gran (auto) 0.00 (0.00-0.031) K/mm3 Absolute Neuts (auto) 3.5 (1.3-6.7) K/mm3 Absolute Nucleated RBC 0.000 (0.0-0.012) K/mm3 Nucleated RBC % 0.0 (0.0-0.2) % PT 15.4 H Cancelled (11.1-14.7) Seconds INR 1.2 Cancelled APTT 29.3 (22.3-36.8) Seconds D-Dimer (<0.48) ug/mL Sodium (137-145) mmol/L Potassium (3.4-5.0) mmol/L Chloride (98-107) mmol/L Carbon Dioxide (22-30) mmol/L Anion Gap (4-12) mmol/L BUN (7-17) mg/dL Creatinine (0.7-1.0) mg/dL Estim Creat Clear Calc ml/min Estimated GFR (59 - ) Glucose (65-110) mg/dL Calcium (8.4-10.2) mg/dL 08/12/25 Range/Units 23:14 WBC (4.5-10.0) K/mm3 RBC (4.2-5.4) M/mm3 Hgb (12.0-15.0) g/dL Hct (37.0-47.0) % MCV (80-100) fl MCH (26-34) pg MCHC (32-36) g/dl RDW (11.5-14.5) % Plt Count (150-375) k/mm3 MPV (7.4-10.4) fl Immature Gran % (Auto) (0-0.5) % Neut % (Auto) (45.5-73.1) % Lymph % (Auto) (18.3-44.2) % Mckenzie % (Auto) (2.6-8.5) % Eos % (Auto) (0-4.4) % Baso % (Auto) (0.2-1.2) % Lymph # (Auto) (0.9-3.2) K/mm3 Mckenzie # (Auto) (0.1-0.6) K/mm3 Eos # (Auto) (0-0.3) K/mm3 Baso # (Auto) (0.0-0.1) K/mm3 Abs Immat Gran (auto) (0.00-0.031) K/mm3 Absolute Neuts (auto) (1.3-6.7) K/mm3 Absolute Nucleated RBC (0.0-0.012) K/mm3 Nucleated RBC % (0.0-0.2) % PT (11.1-14.7) Seconds INR APTT Cancelled (22.3-36.8) Seconds D-Dimer 0.28 (<0.48) ug/mL Sodium 139 (137-145) mmol/L Potassium 3.9 (3.4-5.0) mmol/L Chloride 106 (98-107) mmol/L Carbon Dioxide 26 (22-30) mmol/L Anion Gap 7 (4-12) mmol/L BUN 16 (7-17) mg/dL Creatinine 0.86 (0.7-1.0) mg/dL Estim Creat Clear Calc 43 ml/min Estimated GFR > 60 (59 - ) Glucose 123 H (65-110) mg/dL Calcium 8.8 (8.4-10.2) mg/dL Discharge Plan Discharge Clinical Impression: Dependent edema, Lower extremity edema Patient Disposition: Home Condition: Stable Instructions: Antibiotic Form, Leg Edema (ED) Additional Instructions: Laboratory studies are reassuring. D-dimer is negative so suspicion for DVT is very unlikely. Given your concerns an outpatient scan was arranged for 7:00 a.m. today. Please take the provided prescription for the appointment. Recommendations are to take NSAIDs for pain and swelling control, elevate the legs above the level of the heart when resting or at night, compression stockings for swelling control. Return with any emergencies. Follow up with PCP. Patient Language: Spanish Prescriptions: No Action krill oil 500 mg capsule 500 mg PO DAILY multivitamin Tablet 1 tablet PO DAILY coenzyme Q10 [Co Q-10] 10 mg capsule 10 mg PO DAILY cholecalciferol (vitamin D3) 125 mcg (5,000 unit) capsule 125 mcg PO DAILY donepezil 5 mg tablet 5 mg PO QHS Qty: 90 0RF Zyrtec 10 mg Capsule 10 mg PO DAILY Eliquis 5 mg tablet See Rx Instructions .ROUTE .COMPLEX Qty: 180 2RF Dose Instruction: TAKE 1 TABLET BY MOUTH TWICE DAILY Rx Instructions: TAKE 1 TABLET BY MOUTH TWICE DAILY famotidine 20 mg tablet See Rx Instructions .ROUTE .COMPLEX Qty: 90 0RF Dose Instruction: TAKE 1 TABLET BY MOUTH EVERY DAY AT BEDTIME NEEDED FOR ABDOMINAL DISCOMFORT Rx Instructions: TAKE 1 TABLET BY MOUTH EVERY DAY AT BEDTIME NEEDED FOR ABDOMINAL DISCOMFORT trazodone 50 mg tablet See Rx Instructions .ROUTE .COMPLEX Qty: 90 0RF Dose Instruction: TAKE 1 TABLET BY MOUTH EVERY DAY AT BEDTIME NEEDED FOR SLEEP Rx Instructions: TAKE 1 TABLET BY MOUTH EVERY DAY AT BEDTIME NEEDED FOR SLEEP methocarbamol 500 mg tablet 500 mg PO BID Qty: 180 1RF pantoprazole 40 mg tablet,delayed release (DR/EC) See Rx Instructions .ROUTE .COMPLEX Qty: 180 1RF Dose Instruction: TAKE 1 TABLET BY MOUTH TWICE DAILY Rx Instructions: TAKE 1 TABLET BY MOUTH TWICE DAILY Other Ambulatory Orders: US venous doppler LE BI (Routine) Timeframe: 1 Day Location: Determined by Patient Ordered By: Martinez Shelley Follow-up/Referrals: Jannet Weiner APRN [Primary Care Provider, Internal Medicine] Time of Disposition: 00:48
== END 2025-08-13 00:58 | disposition home or self-care (01) ==
PROVIDERS: Emergency Provider Student in an Organized Health Care Education/Training Program; PCP Nurse Practitioner Family
DX: R60.0 Localized edema (principal); I48.91 Unspecified atrial fibrillation; I87.2 Venous insufficiency (chronic) (peripheral); M19.90 Unspecified osteoarthritis, unspecified site; Z86.718 Personal history of other venous thrombosis and embolism; Z79.01 Long term (current) use of anticoagulants; Z86.711 Personal history of pulmonary embolism
CPT/HCPCS: 36415; 80048; 85025; 85380; 85610; 85730; 99283

== ENCOUNTER 2025-08-13 08:18 | Outpatient (CLI) | payer MEDICARE, SELFPAY ==
--- NOTE | ~2025-08-13 | US_ITS ---
EXAMINATION: US venous doppler [facility], 08/13/2025 8:37 VAULT MECHANIC HISTORY: R60.0 - Localized edema COMPARISON: None Technique: Middleton-scale and color Doppler images were attempted of the lower saphenofemoral junction, common femoral vein,superficial femoral vein, proximal deep femoral vein, proximal deep femoral vein, popliteal vein and posterior tibial veins. Findings: Deep Venous System:Normal flow, augmentation and compressibility. No echogenic thrombus identified. There is thickening of the venous jarvis suggestive of sequelae of a previous DVT. Superficial Venous SystemNo superficial thrombophlebitis. Incidental reflux noted in the right lesser saphenous vein. Soft tissues: Soft tissues are unremarkable. Impression: Negative for DVT. Reviewed, dictated and finalized at location [facility]. [facility] Impression: Negative for DVT.
--- OUTSIDE RECORDS SUMMARY | 2025-08-13 08:28 | XMS_ITS | Encounter Summary ---
Author Organization [employer] [facility] Address 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
--- OUTSIDE RECORDS SUMMARY | 2025-08-13 08:28 | XMS_ITS | Clinical Summary ---
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
--- OUTSIDE RECORDS SUMMARY | 2025-08-13 08:28 | XMS_ITS | Clinical Summary ---
Author Organization [facility] Address [address] [place] [address] Phone Care Team Providers Care Qc Tech Name Role Phone Nikita Lui DO Unavailable [phone] Devin Castaneda DO Primary Care Provider [phone] Medications polyethylene glycol (MIRALAX) Powder Mix the [...] to complete this [place] [address] MEDICARE Care Teams Qc Tech Relationship Specialty Start Date End Date Devin Castaneda DO [address] [place] [address] PCP - General Internal Medicine 04/05/18 Nikita Lui DO Gastroenterology 04/05/18
--- OUTSIDE RECORDS SUMMARY | 2025-08-13 08:28 | XMS_ITS | Clinical Summary ---
Author Organization [facility] Address [address] [place] [address] Care Team Providers Care Human Resources Office Assistant Name Role Phone Marcio Ambriz MD Primary Care Provider [phone] Source Comments [facility],non-owned Affiliates and Associated Physician Practices is amultiple site organization consisting of ambulatory clinics and hospital sitesin [place], [place], [place] and [place]. This disclosure is being madepursuant to the Care Everywhere program and may not contain all information available regarding this patient. 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 Inhaled Oxygen Concentration - - Weight 76.1 kg (167 lb 12.8 oz) 014 10:56 AM CDT Height 165.1 cm (5' 5) 09/19/2013 5:59 AM BLANKBOOK STITCHING MACHINE OPERATOR Body Mass Index 27.92 09/19/2013 5:59 AM BLANKBOOK STITCHING MACHINE OPERATOR Plan of Treatment Health Maintenance Due Date [...] to complete this topic [place] [address] MEDICARE [facility] MEDICARE Member Subscriber Plan / Payer (Ef fective for All Dates) Name:Angel Crockett Member ID:[id number] Relation to Subscriber:Self Name:Angel Crockett Subscriber ID:[id number] Payer ID:Not on file Group ID:Not on file Type:Medicare Address: [place] [id number] [place] [address] MEDICARE AET MEDICARE Member Subscriber Plan / Payer (Ef fective for All Dates) Name:Angel Crockett Member ID:[id number] Relation to Subscriber:Self Name:Angel Crockett Subscriber ID:[id number] Payer ID:Not on file Group ID:Not on file Type:Medicare Address: [place] [id number] [place] [address] MEDICARE Member Subscriber Plan / Payer (Ef fective for All Dates) Name:Fabiana Crockettbrianne Member ID:[id number] Relation to Subscriber:Self Name:Fabiana Crockettalyj carlos Subscriber ID:[id number] Payer ID:Not on file Group ID:Not on file Type:Medicare Address: [place] [id number] [facility] [place] [address] MEDICARE Member Subscriber Plan / Payer (Ef fective for All Dates) Name:Fabiana Crockettbrianne Member ID:[id number] Relation to Subscriber:Self Name:Keira Angel Subscriber ID:[id number] Payer ID:Not on file Group ID:Not on file Type:Medicare Address: [address] [place] [address] MEDICARE Member Subscriber Plan / Payer (Ef fective for All Dates) Name:Fabiana Crockettbrianne Member ID:[id number] Relation to Subscriber:Self Name:Keira Angel Subscriber ID:[id number] Payer ID:Not on file Group ID:Not on file Type:Medicare Address: [address] [place] [address] MEDICARE Member Subscriber Plan / Payer (Ef fective for All Dates) Name:KeiraAngel Member ID:[id number] Relation to Subscriber:Self Name:Fabiana Crockettbrianne Subscriber ID:[id number] Payer ID:Not on file Group ID:Not on file Type:Medicare Address: [place] [id number] [employer] Care Teams Human Resources Office Assistant Relationship Specialty Start Date End Date Marcio Ambriz MD [address] [facility] [address] [place] [address] PCP - General 08/21/13
--- OUTSIDE RECORDS SUMMARY | 2025-08-13 08:28 | XMS_ITS | Clinical Summary ---
Author Organization [facility] [address] [facility] Address [address] [place] [address] Care Team Providers Care Gluing Crew Leader Name Role Phone Derik Mccauley MD Primary Care Provider [phone] Allergies Active Allergy Reactions Criticality Noted Date Comments Calcitonin,Jetmore,Synthetic Unknown 06/13/20 24 Medications cetirizine (ZyrTEC) 10 [...] 10 mg capsule daily 08/16/2023 Active coenzyme [id number] 100-20 mg capsule daily 12/12/2019 Active multivit [...] Description 06/13/2025 1:00 PM CDT Office [place] [facility] [address] [address] Irene Robbins MD Osteopenia of [...] on file Legal 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
== END 2025-08-13 08:19 | disposition home or self-care (01) ==
PROVIDERS: PCP Nurse Practitioner Family; Visit Provider Student in an Organized Health Care Education/Training Program
DX: R60.0 Localized edema (principal)
CPT/HCPCS: 93970

== ENCOUNTER 2025-08-16 13:40 | Outpatient (CLI) | payer MEDICARE, SELFPAY ==
--- OUTSIDE RECORDS SUMMARY | 2024-10-03 02:00 | XMS_ITS | Continuity of Care Document ---
[facility] [place] [address] [place] [phone] Phone Care Team Providers Care Electric Transfer Operator Name Role Phone Isabell Moore OD Unavailable Unavailable Allergies, Adverse Reactions, Alerts Substance Reaction Status Criticality CALCITONIN,SALMON,SYNTHETIC Active No Information Medications Medication Instructions Dosage Effective Dates (start - stop) Status Comments Eliquis 5 mg tablet take 1 tablet by oral route 2 times every day 5 MG - Active Nasacort 55 mcg nasal spray aerosol spray 1 by nasal route every day 1 - Active Zyrtec 10 mg capsule take [address] e every day - Active Calcium 500 500 mg calcium (1,250 mg) tablet take 1 by oral route every day - Active multivitamin tablet take 1 tablet by oral route every day with food - Active Co Q-10 100 mg capsule take 1 by oral route every day - Active krill oil 500 mg capsule take 1 by oral route every day - Active resveratrol 100 mg capsule take 1 by oral route every day - No Longer Active aspirin 325 mg tablet take 1 tablet by oral route every day 325 MG - No Longer Active Procedures Procedure Date No Charge Optomap Fundus Photos No Charge Refraction Eye Exam & Treatment Fundus Photography W/ Report Refraction Eye Exam & Treatment Charge For A No Show No Charge Refraction Office/outpatient Visit, Est Fundus Photography W/ Report No Charge Refraction Eye Exam & Treatment Eye Exam & Treatment Office/outpatient Visit, Est Eye Exam & Treatment InflammaDry InflammaDry Eye Photography Office/outpatient Visit, Est Eye Exam & Treatment Post-op Follow-up Visit No Charge GDX Retina Post-op Follow-up Visit No Charge Refraction Office/outpatient Visit, Est No Charge Refraction After Cataract Laser Surgery Post-op Follow-up Visit Post-op Follow-up Visit No Charge Refraction Post-op Follow-up Visit Remove Cataract, Insert Lens IOLMaster-Professional No Charge Orbscan Eye Exam, New Patient IOLMaster-Technical No Charge Optomap Fundus Photos 014 Advance Directives Directive Yes / No Effective Date File Name Other Directive No N/A N/A WARNING:The information contained in this section is historical and is provided for information only and does not constitute a legal document or any assurance that the information is still accurate. Please verify the information with the sin of the legal document before using it for clinical purposes. Encounters Encounter Description Practice Location Reason(s) For Visit Diagnoses Date Provider Providers Copied on Encounter [facility], [address], [place], [place], [address], [place] tel:[phone] SEC Aneta ALEXANDRE Professional Complete Exam (chief complaint) Dry eyesMeibomian gland dysfnct right eye, upper and lower eyelidsMeibom emma gland dysfnct left eye, upper and lower eyelidsPucker ing of macula, right eyeHx of LASIKBilatera l artificial lens implant 4 Oscar OD Isabell. [address], [address], [place], [place], [address], [place]. tel:[phone] Irene Robbins MD.Referri ng Provider: Luis A Rojas, [facility] [address], [place], [address] . tel:[phone] [facility], [facility] [address], [place], [place], [address], tel:[phone] SEC Mick SCHROEDER Professional Complete Exam (chief complaint) Drusen (degenerative ) of macula, right eyePuckering of macula, right eyePresence of intraocular lensDry eyes Sep- 2 J Luis Romero. [address], [place], [place], [address], [place]. tel:[phone] Irene Robbins MD.Referri ng Provider: Luis A Rojas, [facility] [address], [place], [address] . tel:[phone] [facility], [facility] [address], [place], [place], [address], [place] tel:[phone] SEC Mick SCHROEDER Professional No Information Apr-0 2 J Luis Romero. [address], [address], [place], [place], [address], [place]. tel:[phone] Referring Provider: Luis A Rojas, [facility] [address], [place], [address] . tel:[phone] Office/outpa tient Visit, Est [facility], [facility] [address], [place], [place], [address], [place] tel:[phone] SEC Mick SCHROEDER Professional 6 mo Cornea check (chief complaint) Meibomian gland dysfunction (MGD) of both eyesSuperfici al punctate keratitis of both eyes Apr-0 1 J Luis Romero. [address], [address], [place], [place], [address], [place]. tel:[phone] Irene Robbins MD.Special ist: Petr Bradshaw, [address], [place], [address]. tel:[phone] erring Provider: Luis A Rojas, [facility] [address], [place], [address] . tel:[phone] [facility], [address] [place] [address] [address], [place], [place], [address], [place] tel:[phone] SEC Mick [place] Professional Complete Exam (chief complaint) Bilateral artificial lens implantMeibom emma gland dysfunction (MGD) of both eyesConjuncti vochalasis of both eyesPunctate keratitis, bilateralDrus en (degenerative ) of macula, right eye Oct-0 2-202 0 J Luis Romero. [address] [facility], [facility] [address], [place], [place], [address], [place]. tel:[phone] Irene Robbins MD.Referri ng Provider: Luis A Rojas, [facility] [address], [place], [address] . tel:[phone] [facility], [facility] [address], [place], [place], [address], [place] tel:[phone] SEC Mick [place] Professional Complete Exam (chief complaint) Punctate keratitis, right eyePresence of intraocular lensMeibomian gland dysfunction (MGD) of both eyes Oct-0 1-201 9 J Luis Romero. [address] [facility], [facility] [address], [place], [place], [address], [place]. tel:[phone] Referring Provider: Luis A Rojas, [facility] [address], [place], [address] . tel:[phone] Office/outpa tient Visit, Est [facility], [facility] [address] [facility], [place], [place], [address], [place] tel:[phone] SEC [place] Dry Eye F/U (chief complaint) Meibomian gland dysfunction (MGD) Oct-0 4201 8 Luisito OD Marylou. [address], [address], [place], [address], [place]. tel:[phone] Referring Provider: Luis A Rojas, [address] [place], [place] [address] [employer] [facility] [address], [place], [address] . tel:[phone] [facility], [address] [place] [address] [address], [place], [place], [address], [place] tel:[phone] SEC Mick SCHROEDER Professional Complete Exam (chief complaint) Bilateral artificial lens implantMeibom emma gland dysfunction (MGD)Superfic ial punctate keratitis of both eyes Oct-0 2-201 8 Dietz Nick. [address] [facility], [address], [place], [place], [address], [place]. tel:[phone] Referring Provider: Luis A Rojas, [facility] [address] [employer] [facility] [address], [place], [address] . tel:[phone] Office/outpa tient Visit, Est [facility], [address] [place] [address] [address], [place], [place], [address], [place] [phone] SEC [place] Dry Eye Evaluation (chief complaint) No Information 0 8 Luisito OD Marylou. [address] [facility], [address], [place], [address], [place]. tel:[phone] Referring Provider: Luis A Rojas, [facility] [address] [facility] [address], [place], [address] . tel:[phone] [facility], [address] [place], [place] [address] [address], [place], [place], [address], [place] tel:[phone] SEC Lana Celestin No Information 201 8 Luisito OD Marylou. [address] [facility], [address], [place], [address], [place]. tel:[phone] [facility], [address], [place], [place], [address], [place] tel:[phone] SEC Mick SCHROEDER Professional Difficulty reading (chief complaint) No Information 6 Shilo Lizarraga. [address] [facility], [address], [place], [place], [address], [place]. tel:[phone] Referring Provider: Luis A Rojas, [address], [place], [address] . tel:[phone] [facility], [facility] [address], [place], [place], [address], [place] tel:[phone] SEC Lana N [place] 1 [place] YAG PO OD (chief complaint) No Information 5 Miriam Castelanel. [address] [facility], [address], [place], [place], [address], [place]. tel:[phone] Referring Provider: Luis A Rojas, [address], [place], [address] . tel:[phone] [facility], [address], [place], [place], [address], [place] tel:[phone] SEC Lana N [place] YAG PC OD (chief complaint) No Information 0- 5 Corin Gunn. [facility] [address], [address], [place], [place], [address], [place]. tel:[phone] Referring Provider: Luis A Rojas, [address], [place], [address] . tel:[phone] Office/outpa tient Visit, [facility], [facility], [facility] [address], [place], [place], [address], [place] tel:[phone] SEC [place] N [address] Blurry vision (chief complaint) No Information 3- 5 Corin Gunn. [address], [address], [place], [place], [address], [place]. tel:[phone] Referring Provider: Luis A Rojas, [address] [place] [address] [employer] [facility] [address], [place], [address] . tel:[phone] [facility], [address] [place] [address] [address], [place], [place], [address], [place] [phone] SEC Mick [place] Professional F/u exam, postop (chief complaint) No Information 4 Wankum Zia. [address] [facility], [address], [place], [place], [address], [place]. tel:[phone] Referring Provider: Luis A Rojas, [address] [place] [address] [employer] [facility] [address], [place], [address] . tel:[phone] [facility], [address] [place] [address] [address], [place], [place], [address], [place] [phone] SEC Aneta [place] Professional F/u exam, postop (chief complaint) No Information 4 Wankum Zia. [address] [facility], [facility] [address], [place], [place], [address], [place]. tel:[phone] Referring Provider: Luis A Rojas, [address] [place] [address] [employer] [facility] [address], [place], [address] . tel:[phone] [facility], [address] [place] [address] [address], [place], [place], [address], [place] tel:[phone] SEC Mick [place] Professional 1 DAY PO PHACO OS (chief complaint) No Information 4 Bereket De La Torre. [facility] [address] [facility], [address], [place], [address], [place]. tel:[phone] Referring Provider: Luis A Rojas, [address] [place] [address] [employer] [facility] [address], [place], [address] . tel:[phone] [facility], [address] [place], [place] [address], [place], [place], [address], [place] tel:[phone] [facility] No Information Aug-0 6- 4 Corin Gunn. [facility] [address], [address], [place], [place], [address], [place]. tel:[phone] Referring Provider: Luis A Rojas, [facility] [address], [place], [address] . tel:[phone] [facility], [facility] [address], [place], [place], [address], [place] tel:[phone] SEC Lana Celestin No Information 0 4 Corin Gunn. [facility] [address], [address], [place], [place], [address], [place]. tel:[phone] Referring Provider: Luis A Rojas, [facility] [address], [place], [address] . tel:[phone] [facility], [facility] [address], [place], [place], [address], [place] tel:[phone] SEC Lana Celestin No Information Jul-2 3- 4 Miriam Jones. [address] [facility], [address], [place], [place], [address], [place]. tel:[phone] Referring Provider: Luis A Rojas, [facility] [address], [place], [address] . tel:[phone] [employer] [facility], [facility] [address], [place], [place], [address], [place] tel:[phone] SEC Mick SCHROEDER Professional Blurry vision (chief complaint) No Information Jul-10 14- 4 Corin Gunn. [facility] [address], [address], [place], [place], [address], [place]. tel:[phone] Referring Provider: Wil Cuba MD P, [address], [place], [address]. tel:[phone] [facility], [address], [place], [place], [address], [place] tel:[phone] SEC Lana Celestin No Information 0 4 Shilo Lizarraga. [address] [facility], [address], [place], [place], [address], [place]. tel:[phone] Family History Family Member Type Diagnosis Age At Onset Problem Family history of Diabetes clifford sorin Payers Payer name Insurance type Covered libertarian ID Authorrosemarya toni(s) Medicare [facility] [id number] [employer] CI [id number] Social History Type Description Quantity Date Captured Comments Alcohol Use Details No Caffeine Use Details No Tobacco Use Status Current non-smoker Smoking Status Never smoker Non-Smoking Tobacco Use Details : No Details Available : No Details Available Sex Female Sexual Orientation Don't Know Gender Identity Female Chief Complaint And Reason For Visit From encounter dated '10/03/2024 08:00'. Complete Exam (chief complaint). Description: The 83 year old patient presents for evaluation of Complete Exam in the right eye and left eye. {t states that starting about a year ago they noticed that OU started having a hard time reading far away and pt states that it seems to have been getting worse since. Pt does use lubricating gtts and lid scrubs as needed. Reason For Referral Reason For Referral No Information Plan Of Treatment Date Type Action Status Patient Education Dry Eyes: Care Instruct ions completed Patient Education Dry Eyes: Care Instruct ions completed Patient Education Dry Eyes: Care Instruct ions completed Patient Education Learning About Retinal Drusen completed Patient Education Learning About Your Eye s completed Patient Education Learning About Your Eye s completed Patient Education Dry Eyes: Care Instruct ions completed History Of Present Illness Encounter Date Complaint History Of Prese nt Illness Complete Exam The 83 year old patient presents for evaluation of Complete Exam in the right eye and left eye. {t states that starting about a year ago they noticed that OU started having a hard time reading far away and pt states that it seems to have been getting worse since. Pt does use lubricating gtts and lid scrubs as needed. Complete Exam The 81 year old patient presents for evaluation of Complete Exam in the right eye and left eye. Hx of MF PCIOL OU, YAG PC OU, LASIK OU, PRK s/p CE OD, ORLANDO OU, MGD OU, Dermatochalasis OU, Conjunctivochalasis OU, and Drusen OD. Pt reports she is using AFT PRN OU and Irasema mask PRN OU. Pt reports she went to see Dr. Bradshaw and they advised against any refractive Sx. Pt reports she thinks DV is worse, OU, x 6 mos. 6 mo Cornea check The 80 year ol d female presents for evaluation of 6 mo Cornea check with MRX in the right eye and left eye. Hx of MF PCIOL OU, YAG PC OU, LASIK OU, PRK after CE OD, ORLANDO OU, MGD OU, Arcus OS, Dermatochalasis OU, and Drusen OD. Pt reports she uses AFT TID OU and Irasema Mask QD OU. Pt reports she thinks VA is a little bit better since last appt, but not much. Complete Exam The 79 year old female presents for evaluation of Complete Exam in the right eye and left eye. Hx of MF PCIOL OU, LASIK OU, possible PRK after CE OD, ORLANDO OU, and MGD OU. Pt reports she uses AFT 3 x/week OU. Pt reports she has noticed she has a hard time seeing DV, OU, x 1 yr. Pt reports she doesn't want to wear gls but she might like to have some Sx to help her see better. Pt has with her to help her understand everything. Complete Exam The 78 year old female presents for evaluation of Complete Exam in the right eye and left eye. Hx of PCIOL OD, Restore MF PCIOL OS, ORLANDO OU, MGD OU, and possible PRK after CE OD. Pt reports she uses AFT BID OU, warm compresses Q2days OU, and Lid scrubs QD-BID OU. Pt denies any changes in VA, OU, since last appt. Pt reports OU feels better than it used to because they don't tear like they used to. Dry Eye F/U The 77 year old female presents for evaluation of 6 week Dry Eye F/U in the right eye and left eye. Pt states she is using PFAT tid-qid ou, lid scrubs daily, warm compress 10+ minutes daily. Pt states overall improvement ou in va and comfort. Speed Score 7/28 today.Hx of ORLANDO ou, MGD ou. Pt states Complete Exam The 77 year old female presents for evaluation of Complete Exam in the right eye and left eye. PCIOL OD, RESTOR IOL OS, YAG PC OU, and ORLANDO OU. Patient states VA not as good as she would have liked. Patient uses ART prn OU and is currently being treated by Dr Stringer has another appt this week. Dry Eye Evaluation The 77 year o ld female presents for evaluation of Dry Eye Evaluation in the right eye and left eye. Pt has been having trouble with burning and tearing off and on for many years. States she has not used AFTs much but they didn't seem to help. Inflammadry Testing Negative MMP9 OU Difficulty reading The 75 year o ld female presents for a complete exam ou Patient has hx of CE ou with YAG CAPS ou. Patient c/o sometimes ou bynum, itches, and damian. Patient denies any changes in vision ou. 1 MO YAG PO OD The 74 year old female presents for 1 MO YAG PO OD. Patient Hx YAG PC OS 12/03/2014 and YAG PC OD 01/07/2015, MF IOL OU and Hx LASIK OU. Patient reports OS vision seems to be blurry compared to OD. Patient only uses AFT PRN OU. YAG PC OD The 74 year old female presents for a YAG PC OD and 5 wk p/o to YAG PC OS. Pt denies any pain or discomfort at this time. Pt c/o OD v/a slowly decreasing in the distance, near, and c glare at night. Pt states OS v/a seems to be better but is still blurry. Pt uses AT's PRN Blurry vision The 74 year old female presents for an office visit for decreased v/a OS, pt states that this has been an issue since her sx. Pt denies any pain or discomfort at this time. Pt states v/a has slowly decreased over time in the distance, near, and c glare at night. Pt does not use any gtts at this time. Pt states eyes feel very dry at night. F/u exam, postop Patient present s for a 2 week post op CE OS (tecnis) MF. Patinet using Pred qid OS. Patient c/o blurry vision at distance. F/u exam, postop The 73 year old female presents for a 1 week Phaco c IOL (Tecnis MF). Pt states that around bottom lid OS has been sore, it feels better today. Pt states that OS has been red, and her vision was blurry when it was red. Pt states OS feels bettter today and vision is improving. Pt Hx of Phaco OD.Pt using Pred. 1 DAY PO PHACO OS The 73 year ol d female presents for 1 DAY PO PHACO OS ( Tecnis MF Lens ). Patient reports no pain or discomfort last night or this morning. Patient has the Prednisolone and Polytrim to start QID OS today. PO instructions discussed and given to patient along with the clear eye shield. Blurry vision The 73 year old female presents for Cataract Evaluation OS. HX Lasik OU, Phaco with IOL OD. Patient's family member states she has an adjustable IOL, but it is not Crystalens. Pt also had to have a procedure after OD surgery that he believes was PRK. Pt has problems with glare and blurred vision. Pt does not wear glasses but uses a magnifying glass. Functional Status Date Functional Assessmen t No Information Instructions Date Instruction Additional Infor jennifer Impression/Plan Impression/Plan Impression/Plan Impression/Plan Impression/Plan Impression/Plan Warm compress and massage Relate d to Meibomian gland dysfunction (MGD) Impression/Plan Impression/Plan Warm compress and massage Relate d to Dry eye of left side Bilateral artificial lens implant - Educational material given Related to Bilateral artificial lens implant Follow up - Return i n 1 year with Zia Lao M.D. for Complete Exam. Impression/Plan - IO L's in good position; open pc. No signs of glaucoma or AMD OU. Will continue to monitor. Recommend Zaditor or Alaway for allergies. Return to clinic in 1 year for complete exam or sooner with any problems. - Discussed refracti ve status, Patient defers glasses at this time.Return for annual exam. Related to Post operative follow up - Enlarged opening O D, pt does not need to wait the additional 45 min. for repeat IOP check. See DPW in 3-4 weeks.14@ 5.6 Related to After cataract limiting vision - 3-4 weeks po yag O S with ? yag pc od if she feels os va has improved. Related to See list of assessments above - Discussed dx with pt. Discussed glare and halos explained this is associated with the IOL type. Explained while driving at night, turn up the illumination on the dashboard and this may reduce pupil size, minimizing glare. Discussed early AMD with pt. OS.Early capsular fibrosis OS, will proceed with yag pc os 1st today and if this gives her a visual improvement may proceed with yag pc od on return. Related to See list of assessments above - Dr. Coombs to review chart re postop myope Related to Pseudophakia - finish drops Related to Pseud ophakia - as scheduled with Dr Coombs Rela kory to See list of assessments above - 1 week post op pha co with IOL OS. Healing well. Slightly near sighted. Medication instillation and post op instructions reviewed. RTC as scheduled with Dr Coombs. Related to See list of assessments above - as scheduled Related to See l ist of assessments above - One day s/p phaco with IOL OS. IOL in good position. Medication instillation and post op instructions reviewed. Pt understands shield use. RTC as scheduled or sooner if problems. 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 Discussed all risks, benefits, procedures and recovery. Patient understands changing glasses will not improve vision. Patient desires to have surgery, recommend phacoemulsification with intraocular lens. Pt has h/o LASIK, pt will obtain records from LASIK surgery and IOL implant card from OD surgery. Rec MF IOL to match OD. Educational materials provided:about today's exam. 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
--- NOTE | ~2025-08-16 | XR_ITS ---
Examination: XR chest 2V Clinical History: R05.9 - Cough, unspecified Comparison: None Technique: PA and Lateral Findings: Cardiomediastinal silhouette normal size and configuration. Bibasilar interstitial changes. Wedge deformity of what are probably L1 and L2, the latter worse. IMPRESSION: 1. Bibasilar atelectasis and/or probable fibrosis. 2. Recommend CT chest. Reviewed, dictated and finalized at location R. 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
--- OUTSIDE RECORDS SUMMARY | 2025-08-16 20:13 | XMS_ITS | Clinical Summary ---
Author Organization [facility] Address [address] [place] [address] Care Team Providers Care Patient Relations Coordinator Name Role Phone Derik Mccauley MD Primary Care Provider [phone] Allergies Active Allergy Reactions Criticality Noted Date Comments Calcitonin,[place],Synthetic Unknown 06/13/20 24 Medications cetirizine (ZyrTEC) 10 [...] 10 mg capsule daily 08/16/2023 Active coenzyme [id number] 100-20 mg capsule daily 12/12/2019 Active multivit [...] Description 06/13/2025 1:00 PM CDT Office Visit [facility] [address] [address] Irene Robbins MD Osteopenia of [...] on file 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
--- OUTSIDE RECORDS SUMMARY | 2025-08-16 20:13 | XMS_ITS | Encounter Summary ---
Author Organization Tweet Category [facility] Address [address] [place] [address] Care Team Providers Care In Flight Refueling System Repairer Name Role Phone Unavailable Primary Care Provider Unavailabl e Encounter Details Date Type Department Care Team (Late st Contact Info) Description 03/18/2004 Outpatient Historical [facility] Ab Lagunas MD [address] [place] [address] ABDOMINAL PAIN EPIGASTRIC (Primary Dx) Social History Tobacco Use Types Packs/Day Years Used Date Smoking Tobacco: Never Assessed Comments Unknown Sex and Gender Information Value Date Recorded Sex Assigned at Not on file Legal Sex Female 3:55 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
--- OUTSIDE RECORDS SUMMARY | 2025-08-16 20:13 | XMS_ITS | Clinical Summary ---
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
--- OUTSIDE RECORDS SUMMARY | 2025-08-16 20:13 | XMS_ITS | Clinical Summary ---
Author Organization [facility] Address [address], [facility] [address] [place] [address] Phone Care Team Providers Care Spool Sander Name Role Phone Nikita Lui DO Unavailable [phone] Devin Castaneda DO Primary Care Provider [...] to complete this topic [place] [address] MEDICARE Care Teams Spool Sander Relationship Specialty Start Date End Date Devin Castaneda DO [address] [place] [address] PCP - General Internal Medicine 04/05/18 Nikita Lui DO Gastroenterology 04/05/18
--- OUTSIDE RECORDS SUMMARY | 2025-08-16 20:13 | XMS_ITS | Clinical Summary ---
Author Organization [facility] Address [address] [place] [address] Care Team Providers Care Maintenance And Repair Worker Name Role Phone Marcio Ambriz MD Primary Care Provider [phone] [facility],non-owned Affiliates and Associated Physician Practices is amultiple site organization consisting of ambulatory clinics and hospital sitesin [place], [place] and [place]. This disclosure is being madepursuant to the Care Everywhere program and may not contain all information available regarding this patient. Last updated 18.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 Oxygen Saturation 96% 09/19/2013 9:45 AM SALES PLANNING MANAGER Inhaled Oxygen Concentration - - Weight 76.1 kg (167 lb 12.8 oz) 014 10:56 AM CDT Height 165.1 cm (5' 5) 09/19/2013 5:59 AM SALES PLANNING MANAGER Body Mass Index 27.92 09/19/2013 5:59 AM SALES PLANNING MANAGER Plan of Treatment Health Maintenance Due Date [...] to complete this topic [place] [address] MEDICARE [facility] MEDICARE Member Subscriber Plan / Payer (Ef fective for All Dates) Name:Angel Crockett Member ID:[id number] Relation to Subscriber:Self Name:Angel Crockett Subscriber ID:[id number] Payer ID:Not on file Group ID:Not on file Type:Medicare Address: [place] [id number] [place] [address] MEDICARE AET MEDICARE Member Subscriber Plan / Payer (Ef fective for All Dates) Name:Angel Crockett Member ID:[id number] Relation to Subscriber:Self Name:Angel Crockett Subscriber ID:[id number] Payer ID:Not on file Group ID:Not on file Type:Medicare Address: [place] [id number] [place] [address] MEDICARE Member Subscriber Plan / Payer (Ef fective for All Dates) Name:Fabiana Crockettbrianne Member ID:[id number] Relation to Subscriber:Self Name:Fabiana Crockettalyj carlos Subscriber ID:[id number] Payer ID:Not on file Group ID:Not on file Type:Medicare Address: [place] [id number] [facility] [place] [address] MEDICARE Member Subscriber Plan / Payer (Ef fective for All Dates) Name:Fabiana Crockettbrianne Member ID:[id number] Relation to Subscriber:Self Name:Keira Angel Subscriber ID:[id number] Payer ID:Not on file Group ID:Not on file Type:Medicare Address: [address] [place] [address] MEDICARE Member Subscriber Plan / Payer (Ef fective for All Dates) Name:Fabiana Crockettbrianne Member ID:[id number] Relation to Subscriber:Self Name:Keira Angel Subscriber ID:[id number] Payer ID:Not on file Group ID:Not on file Type:Medicare Address: [address] [place] [address] MEDICARE Member Subscriber Plan / Payer (Ef fective for All Dates) Name:KeiraAngel Member ID:[id number] Relation to Subscriber:Self Name:Fabiana Crockettbrianne Subscriber ID:[id number] Payer ID:Not on file Group ID:Not on file Type:Medicare Address: [place] [id number] [employer] Care Teams Maintenance And Repair Worker Relationship Specialty Start Date End Date Marcio Ambriz MD [address] [facility] [address] [place] [address] PCP - General 08/21/13
== END 2025-08-16 13:41 | disposition home or self-care (01) ==
PROVIDERS: PCP Nurse Practitioner Family; Visit Provider Nurse Practitioner Family
DX: J98.11 Atelectasis (principal)
CPT/HCPCS: 71046

== ENCOUNTER 2025-08-24 10:05 | Outpatient (CLI) | payer MEDICARE, SELFPAY ==
--- NOTE | ~2025-08-24 | CT_ITS ---
EXAMINATION:CT chest high resolution wo az DATE: 08/24/2025 10:23 INDICATION: Abnormal test TECHNIQUE: Computed tomography (CT) of the chest was performed without intravenous contrast. The dose-length product (DLP) was 134.19 mGy-cm. COMPARISON: Chest x-rays from earlier this month, as well as from August 17, 2013. FINDINGS: Approximately 60% anterior compression fracture of L1 and 25% anterior compression deformity or fracture of T12 similar in appearance to the 2013 exam. Mild bibasilar fibrotic appearing changes right worse than left. No consolidation effusion or pneumothorax. No suspicious nodules or masses. No gross interstitial lung disease appreciated. Central and large airways are patent. Heart and great vessels normal size. No significant pericardial effusion or bulky lymphadenopathy. Diffuse degenerative and mild osteopenic changes throughout the bones. No acute process seen in the visualized portions of the upper abdomen or extrathoracic soft tissues. Mild skin thickening noted in the right areolar and periareolar breast soft tissues. IMPRESSION: 1. Minimal parenchymal disease with no gross acute intrathoracic process. 2. Chronic compression fractures of T12-L1. 3. Asymmetric appearance in the area over skin of the right breast. Query if patient has undergone recent screening mammogram. Reviewed, dictated and finalized at location A. ER CONTROLLED ATMOSPHERIC FURNACE IMPRESSION: 1. Minimal parenchymal disease with no gross acute intrathoracic process. 2. Chronic compression fractures of T12-L1. 3. Asymmetric appearance in the area over skin of the right breast. Query if pa tient has undergone recent screening mammogram.
== END 2025-08-24 10:06 | disposition home or self-care (01) ==
PROVIDERS: PCP Nurse Practitioner Family; Visit Provider Nurse Practitioner Family
DX: R93.89 Abnormal findings on diagnostic imaging of other specified body structures (principal); J84.10 Pulmonary fibrosis, unspecified; J98.11 Atelectasis
CPT/HCPCS: 71250